=== PATIENT | male | born 1960 | race Caucasian/White ===

== ENCOUNTER 2016-08-26 02:11 | Emergency (ER) | payer OTHER ==
[2016-08-26 02:41] VITALS: BP 165/90
[2016-08-26 03:48] LABS: Urine Bacteria Absent (Absent); Urine Bilirubin Negative (Negative); Urine Glucose Negative (Negative); Urine Nitrite Negative (Negative)
[2016-08-26 03:50] LABS: Hematocrit 43 % (42-52); Hemoglobin 14.4 g/dl (14.0-18.0); Mean Corpuscular HGB Conc 33 g/dl (31-36); Mean Corpuscular Hemoglobin 30 pg (27-31); Mean Corpuscular Volume 88 fL (80-94); Mean Platelet Volume 9 um3 (7.4-10.4); Red Blood Count 4.87 10^6/ul (4.0-5.4); Red Cell Distribution Width 14 % (10.5-15); White Blood Count 6.8 10^3/ul (3.5-10.8)
[2016-08-26 03:56] LABS: ALT 16 U/L (7-52); AST 27 U/L (13-39); Albumin 4.2 g/dL (3.2-5.2); Alkaline Phosphatase 82 U/L (34-104); Anion Gap 7 mmol/L (2-11); BUN/Creatinine Ratio 16.8 (8-20); Blood Urea Nitrogen 17 mg/dL (6-24); CO2 Carbon Dioxide 26 mmol/L (22-32); Calcium 9.4 mg/dL (8.6-10.3); Chloride 102 mmol/L (101-111); EGFR African American 98.6 (>60); EGFR Non-African American 76.7 (>60); Globulin 2.8 g/dL (2-4); Glucose 153 mg/dL (70-100); Potassium 3.6 mmol/L (3.5-5.0); Sodium 135 mmol/L (133-145)
[2016-08-26 04:01] LABS: Acetaminophen < 15 mcg/mL; Alcohol < 10 mg/dL (<10); Salicylate < 2.50 mg/dL (<30)
[2016-08-26 04:11] LABS: TSH (Thyroid Stimulating Horm) 1.96 mcIU/mL (0.34-5.60)
[2016-08-26 04:14] LABS: Benzodiazepine Urine Screen None Detected (None Detect)
--- NOTE | 2016-08-26 06:30 | ED ---
Agustin Denny Aidan, scribed for Brennen Smith on 08/26/16 at 0317 . 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 He was suicidal and intended to take his life by overdosing on alcohol and sleep medication until he took a long walk and calmed down. Hx of depression. - History Of Current Complaint Chief Complaint: EDMentalHealth Time Seen by Provider: 08/26/16 02:48 Hx Obtained From: Patient Onset/Duration: Sudden Onset, Lasting Hours, Resolved Timing: Intermittent Episode Lasting Severity Initially: Moderate Severity Currently: Mild Character: Depressed Aggravating Factor(s): Other - chronic stress in life, Hx of depression Alleviating Factor(s): Other - taking a long walk alleviated his suicidal ideation Associated Signs And Symptoms: Positive: Negative Related History: Positive For: Prior Psychiatric Issues - depression Has Suicidal: Reports: Thoughts, With A Plan - however, he claims that he is no longer suicidal Has Homicidal: Denies: Thoughts, With A Plan, Demonstrates Gesture, Has Prior Attempt(s) - Risk Factor(s) Completed Suicide Risk Factors: Male, White [place] - Allergies/Home Medications Allergies/Adverse Reactions: Allergies Allergy/AdvReac Type Severity Reaction Status Date / Time No Known Allergies Allergy Verified 08/26/16 02:42 PMH/Surg Hx/FS Hx/Imm Hx Cardiovascular History: Reports: Hx Hypertension, Other Cardiovascular Problems/ Disorders - stents Psychiatric History: Reports: Hx Depression, Hx of Violent Episodes Against Others Denies: Hx Eating Disorder - Surgical History Surgery Procedure, Year, and Place: STENT PLACEMENT. COSMETIC SX EYES. HERNIA REPAIR X 3 Infectious Disease History: No Infectious Disease History: Reports: Hx of Known/Suspected MRSA - Pt denies on Denies: Traveled Outside the [place] in Last 30 Days - Family History Known Family History: Positive: Hypertension, Diabetes, Other - "psych problems " - Social History Occupation: Disabled Lives: With Family Alcohol Use: Rare Alcohol Amount: Pt states he started drinking alcohol 1 week ago, 2-3 drinks/day Hx Substance Use: No Substance Use Type: Reports: None Hx Tobacco Use: Yes Smoking Status (MU): Former Smoker Review of Systems Constitutional: Negative Eyes: Negative ENT: Negative Cardiovascular: Negative Respiratory: Negative Gastrointestinal: Negative Genitourinary: Negative Musculoskeletal: Negative Skin: Negative Neurological: Negative Positive: Depressed All Other Systems Reviewed And Are Negative: Yes Physical Exam Triage Information Reviewed: Yes Vital Signs On Initial Exam: Initial Vitals Temp Pulse Resp BP Pulse Ox 97.9 F 71 18 165/90 99 08/26/16 02:37 08/26/16 02:37 08/26/16 02:37 08/26/16 02:37 08/26/16 02:37 Vital Signs Reviewed: Yes Appearance: Positive: Well-Appearing, No Pain Distress Skin: Positive: Warm, Skin Color Reflects Adequate Perfusion, Dry Head/Face: Positive: Normal Head/Face Inspection Eyes: Positive: EOMI, LAYLA ENT: Positive: Normal ENT inspection Neck: Positive: Supple, Nontender Respiratory/Lung Sounds: Positive: Clear to Auscultation, Breath Sounds Present Cardiovascular: Positive: RRR, Pulses are Symmetrical in both Upper and Lower Extremities Abdomen Description: Positive: Nontender, No Organomegaly Bowel Sounds: Positive: Present Musculoskeletal: Positive: Strength/ROM Intact Neurological: Positive: Sensory/Motor Intact, Alert, Oriented to Person Place, Time Psychiatric: Positive: Depressed AVPU Assessment: Alert - Javier Coma Scale Coma Scale Total: 15 Diagnostics - Vital Signs Vital Signs Temp Pulse Resp BP Pulse Ox 08/26/16 02:37 97.9 F 71 18 165/90 99 - Laboratory Lab Results: Lab Results 08/26/16 08/26/16 08/26/16 Range/Units 02:42 02:42 02:42 WBC 6.8 (3.5-10.8) 10^3/ul RBC 4.87 (4.0-5.4) 10^6/ul Hgb 14.4 (14.0-18.0) g/dl Hct 43 (42-52) % MCV 88 (80-94) fL MCH 30 (27-31) pg MCHC 33 (31-36) g/dl RDW 14 (10.5-15) % Plt Count 163 (150-450) 10^3/ul MPV 9 (7.4-10.4) um3 Neut % (Auto) 70.4 (38-83) % Lymph % (Auto) 18.1 L (25-47) % [place] % (Auto) 7.7 (1-9) % Eos % (Auto) 2.8 (0-6) % Baso % (Auto) 1.0 (0-2) % Absolute Neuts (auto) 4.8 (1.5-7.7) 10^3/ul Absolute Lymphs (auto) 1.2 (1.0-4.8) 10^3/ul Absolute Monos (auto) 0.5 (0-0.8) 10^3/ul Absolute Eos (auto) 0.2 (0-0.6) 10^3/ul Absolute Basos (auto) 0.1 (0-0.2) 10^3/ul Absolute Nucleated RBC 0.01 10^3/ul Nucleated RBC % 0.1 Sodium 135 (133-145) mmol/L Potassium 3.6 (3.5-5.0) mmol/L Chloride 102 (101-111) mmol/L Carbon Dioxide 26 (22-32) mmol/L Anion Gap 7 (2-11) mmol/L BUN 17 (6-24) mg/dL Creatinine 1.01 (0.67-1.17) mg/dL Est GFR ( Amer) 98.6 (>60) Est GFR (Non-Af Amer) 76.7 (>60) BUN/Creatinine Ratio 16.8 (8-20) Glucose 153 H (70-100) mg/dL Calcium 9.4 (8.6-10.3) mg/dL Total Bilirubin 0.50 (0.2-1.0) mg/dL AST 27 (13-39) U/L ALT 16 (7-52) U/L Alkaline Phosphatase 82 (34-104) U/L Total Protein 7.0 (6.4-8.9) g/dL Albumin 4.2 (3.2-5.2) g/dL Globulin 2.8 (2-4) g/dL Albumin/Globulin Ratio 1.5 (1-3) TSH 1.96 (0.34-5.60) mcIU/mL Urine Color Yellow Urine Appearance Clear Urine pH 6.0 (5-9) Ur Specific [place] 1.015 (1.010-1.030) Urine Protein Negative (Negative) Urine Ketones Negative (Negative) Urine Blood Negative (Negative) Urine Nitrate Negative (Negative) Urine Bilirubin Negative (Negative) Urine Urobilinogen Negative (Negative) Ur Leukocyte Esterase Trace H (Negative) Urine WBC (Auto) 1+(6-10/hpf) H (Absent) Urine RBC (Auto) Trace(0-2/hpf) (Absent) Urine Bacteria Absent (Absent) Urine Glucose Negative (Negative) Salicylates < 2.50 (<30) mg/dL Urine Opiates Screen (None Detect) Acetaminophen < 15 mcg/mL Ur Barbiturates Screen (None Detect) Ur Phencyclidine Scrn (None Detect) Ur Amphetamines Screen (None Detect) U Benzodiazepines Scrn (None Detect) Urine Cocaine Screen (None Detect) U Cannabinoids Screen (None Detect) Serum Alcohol < 10 (<10) mg/dL 08/26/16 Range/Units 02:42 WBC (3.5-10.8) 10^3/ul RBC (4.0-5.4) 10^6/ul Hgb (14.0-18.0) g/dl Hct (42-52) % MCV (80-94) fL MCH (27-31) pg MCHC (31-36) g/dl RDW (10.5-15) % Plt Count (150-450) 10^3/ul MPV (7.4-10.4) um3 Neut % (Auto) (38-83) % Lymph % (Auto) (25-47) % [place] % (Auto) (1-9) % Eos % (Auto) (0-6) % Baso % (Auto) (0-2) % Absolute Neuts (auto) (1.5-7.7) 10^3/ul Absolute Lymphs (auto) (1.0-4.8) 10^3/ul Absolute Monos (auto) (0-0.8) 10^3/ul Absolute Eos (auto) (0-0.6) 10^3/ul Absolute Basos (auto) (0-0.2) 10^3/ul Absolute Nucleated RBC 10^3/ul Nucleated RBC % Sodium (133-145) mmol/L Potassium (3.5-5.0) mmol/L Chloride (101-111) mmol/L Carbon Dioxide (22-32) mmol/L Anion Gap (2-11) mmol/L BUN (6-24) mg/dL Creatinine (0.67-1.17) mg/dL Est GFR ( Amer) (>60) Est GFR (Non-Af Amer) (>60) BUN/Creatinine Ratio (8-20) Glucose (70-100) mg/dL Calcium (8.6-10.3) mg/dL Total Bilirubin (0.2-1.0) mg/dL AST (13-39) U/L ALT (7-52) U/L Alkaline Phosphatase (34-104) U/L Total Protein (6.4-8.9) g/dL Albumin (3.2-5.2) g/dL Globulin (2-4) g/dL Albumin/Globulin Ratio (1-3) TSH (0.34-5.60) mcIU/mL Urine Color Urine Appearance Urine pH (5-9) Ur Specific [place] (1.010-1.030) Urine Protein (Negative) Urine Ketones (Negative) Urine Blood (Negative) Urine Nitrate (Negative) Urine Bilirubin (Negative) Urine Urobilinogen (Negative) Ur Leukocyte Esterase (Negative) Urine WBC (Auto) (Absent) Urine RBC (Auto) (Absent) Urine Bacteria (Absent) Urine Glucose (Negative) Salicylates (<30) mg/dL Urine Opiates Screen None detected (None Detect) Acetaminophen mcg/mL Ur Barbiturates Screen None detected (None Detect) Ur Phencyclidine Scrn None detected (None Detect) Ur Amphetamines Screen None detected (None Detect) U Benzodiazepines Scrn None detected (None Detect) Urine Cocaine Screen None detected (None Detect) U Cannabinoids Screen None detected (None Detect) Serum Alcohol (<10) mg/dL Result Diagrams: 08/26/16 02:42 08/26/16 02:42 Lab Statement: Any lab studies that have been ordered have been reviewed, and results considered in the medical decision making process. Course/Dx - Course Course Of Treatment: This is a 56 y/o male who presents with depression. He had suicidal ideation until he took a long walk and calmed himself down. Pt requests consultation with psych. He will be admitted under supervision of Dr. Dominguez and will consult with psych. - Differential Dx/Clinical Impression Differential Diagnosis/HQI/PQRI: Positive: Depression, Suicidal Ideation Provider Diagnosis: Depression, Suicidal ideation Discharge - Discharge Plan Condition: Stable Disposition: ADMITTED TO [facility] Referrals: Julisa VAZQUEZ,Clyde Carroll [Primary Care Provider] - The documentation as recorded by the Agustin aguilar Aidan accurately reflects the service I personally performed and the decisions made by me, Brennen Smith.
--- NOTE | 2016-08-26 14:59 | ED ---
Nikita Denny Matthew, scribed for James Dominguez MD on 08/26/16 at 1457 . Progress - Progress Note Progress Note: The patient is a sign out from Dr. Smith. The patient is currently waiting for family to arrive in the ED to determine if theres a safe discharge plan. Condition stable and disposition pending. - Consult/PCP Time Called: 06:15 Course/Dx - Course Course Of Treatment: This is a 56 y/o male who presents with depression. He had suicidal ideation until he took a long walk and calmed himself down. Pt requests consultation with psych. He will be admitted under supervision of Dr. Dominguez and will consult with psych. - Diagnoses Provider Diagnoses: Depression, Suicidal ideation The documentation as recorded by the Nikita aguilar Matthew accurately reflects the service I personally performed and the decisions made by , James Dominguez MD.
== END 2016-08-26 16:45 | disposition home or self-care (01) ==
LOC: ED 02:11
DX: R45.851 Suicidal ideations (principal); F32.9 Major depressive disorder, single episode, unspecified; Z87.891 Personal history of nicotine dependence
CPT/HCPCS: 36415; 80053; 80307; 80320; 80329; 81003; 81015; 84443; 85025; 87086; 93005; 99284; G0480

== ENCOUNTER 2017-01-16 15:19 | Emergency (ER) | payer OTHER ==
[2017-01-16 15:26] VITALS: BP 166/98
--- NOTE | 2017-01-16 15:49 | UC ---
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 - History of Current Complaint Chief Complaint: UCUpperExtremity Stated Complaint: LFT ELBOW PAIN Time Seen by Provider: 01/16/17 15:34 Hx Obtained From: Patient Onset/Duration: Weeks Severity Initially: Mild Severity Currently: Moderate Pain Intensity: 6 Pain Scale Used: 0-10 Numeric Character: Aching, Throbbing, Spasmodic Aggravating Factor(s): Movement, Pulling, Twisting Alleviating Factor(s): Rest Associated Signs And Symptoms: Positive: Negative - Allergies/Home Medications Allergies/Adverse Reactions: Allergies Allergy/AdvReac Type Severity Reaction Status Date / Time No Known Allergies Allergy Verified 01/16/17 15:26 PMH/Surg Hx/FS Hx/Imm Hx Previously Healthy: Yes Endocrine History: Hyperthyroidism, Dyslipidemia Cardiovascular History: Cardiac Disease, Hypertension Psychological History: Depression - Surgical History Surgical History: Yes Surgery Procedure, Year, and Place: STENT PLACEMENT. COSMETIC SX EYES. HERNIA REPAIR X 3 - Family History Known Family History: Positive: Cardiac Disease, Hypertension, Diabetes, Other - "psych problems" - Social History Alcohol Use: None Alcohol Amount: Pt states he started drinking alcohol 1 week ago, 2-3 drinks/day Substance Use Type: None Smoking Status (MU): Former Smoker When Did the Patient Quit Smoking/Using Tobacco: 2000 Household Exposure Type: Cigarettes - Immunization History Most Recent Tetanus Shot: about 3 years ago Review of Systems Constitutional: Negative Skin: Negative Eyes: Negative ENT: Negative Respiratory: Negative Cardiovascular: Negative Gastrointestinal: Negative Genitourinary: Negative Motor: Negative Neurovascular: Negative Musculoskeletal: Arthralgia Neurological: Negative Psychological: Negative All Other Systems Reviewed And Are Negative: Yes Physical Exam Triage Information Reviewed: Yes Appearance: Well-Appearing, No Pain Distress, Well-Nourished Vital Signs: Initial Vital Signs Temp 98.6 F 01/16/17 15:20 Pulse 69 01/16/17 15:20 Resp 16 01/16/17 15:20 BP 166/98 01/16/17 15:20 Pulse Ox 96 01/16/17 15:20 Vital Signs Reviewed: Yes Eyes: Positive: Conjunctiva Clear ENT: Positive: Hearing grossly normal. Negative: Nasal congestion, Nasal drainage, Trismus, Muffled/hoarse voice Neck: Positive: Supple, Nontender Respiratory: Positive: Lungs clear, Normal breath sounds, No respiratory distress, No accessory muscle use Cardiovascular: Positive: RRR, No Murmur Musculoskeletal: Positive: ROM Intact, No Edema, Other: - tender lateral epicondyle Neurological: Positive: Alert Psychological Exam: Normal Skin Exam: Normal Elbow Pain Course/Dx - Differential Dx/Diagnosis Provider Diagnoses: right lateral epicondylitis Discharge - Discharge Plan Condition: Stable Disposition: HOME Prescriptions: Naproxen Sodium [Naproxen Sodium 500 MG TAB] 500 mg PO BID PRN #30 tab PRN Reason: Pain Patient Education Materials: Tennis Elbow (ED) Referrals: Zaki Le MD [Medical Doctor] - As Soon As Possible Julisa VAZQUEZ,Clyde Carroll [Primary Care Provider] - 1 Week (for bp recheck) Additional Instructions: you can try a tennis elbow strap or brace
--- NOTE | 2017-01-16 15:55 | RAD ---
INDICATION: Right elbow pain. TECHNIQUE: 4 views of the right elbow were obtained. FINDINGS: The bones are in normal alignment. No joint effusion or fracture is seen. There is mild osteoarthritic change present. IMPRESSION: MILD OSTEOARTHRITIC CHANGE.
== END 2017-01-16 16:01 | disposition home or self-care (01) ==
LOC: UCCORT 15:19
DX: M77.11 Lateral epicondylitis, right elbow (principal); E05.90 Thyrotoxicosis, unspecified without thyrotoxic crisis or storm; E78.5 Hyperlipidemia, unspecified; I10 Essential (primary) hypertension; F32.9 Major depressive disorder, single episode, unspecified; Z95.5 Presence of coronary angioplasty implant and graft; Z87.891 Personal history of nicotine dependence
CPT/HCPCS: 99212; G0463

== ENCOUNTER 2017-02-18 12:06 | Emergency (ER) | payer OTHER ==
[2017-02-18 12:44] LABS: Hematocrit 45 % (42-52); Hemoglobin 14.7 g/dl (14.0-18.0); Mean Corpuscular HGB Conc 33 g/dl (31-36); Mean Corpuscular Hemoglobin 30 pg (27-31); Mean Corpuscular Volume 91 fL (80-94); Mean Platelet Volume 9 um3 (7.4-10.4); Red Blood Count 4.89 10^6/ul (4.0-5.4); Red Cell Distribution Width 14 % (10.5-15); White Blood Count 7.3 10^3/ul (3.5-10.8)
[2017-02-18 12:46] VITALS: BP 172/100
[2017-02-18 12:59] LABS: Urine Bacteria Absent (Absent); Urine Bilirubin Negative (Negative); Urine Glucose Negative (Negative); Urine Nitrite Negative (Negative)
[2017-02-18 13:17] LABS: ALT 14 U/L (7-52); AST 25 U/L (13-39); Albumin 4.4 g/dL (3.2-5.2); Alkaline Phosphatase 91 U/L (34-104); Anion Gap 4 mmol/L (2-11); BUN/Creatinine Ratio 14.2 (8-20); Blood Urea Nitrogen 15 mg/dL (6-24); CO2 Carbon Dioxide 25 mmol/L (22-32); Calcium 9.6 mg/dL (8.6-10.3); Chloride 107 mmol/L (101-111); EGFR African American 93.3 (>60); EGFR Non-African American 72.5 (>60); Globulin 2.8 g/dL (2-4); Glucose 81 mg/dL (70-100); Sodium 136 mmol/L (133-145); Total Protein 7.2 g/dL (6.4-8.9)
[2017-02-18 13:19] LABS: Benzodiazepine Urine Screen None Detected (None Detect)
[2017-02-18 13:19] LABS: Acetaminophen < 15 mcg/mL; Alcohol < 10 mg/dL (<10); Salicylate < 2.50 mg/dL (<30)
[2017-02-18 13:27] LABS: TSH (Thyroid Stimulating Horm) 1.54 mcIU/mL (0.34-5.60)
--- NOTE | 2017-02-18 19:19 | ED ---
Bridgett Denny Seung-Jae, scribed for aJmes Dominguez MD on 02/18/17 at 1617 . Psychiatric Complaint - HPI Summary HPI Summary: Pt is a 56 y/o M presenting to the ED with c/o acute on chronic depression and SI with the plan involving drowing, cutting himself, jumping in to car, and hanging. His SI onset was 3-4 hours ago and his depression has been continuous for 3 days. No cuts were found on his limbs. He states that he has been hearing voices saying that "he is no good". Pt denies paranoia, CP, SOB, abd pain. He has been admitted to [facility] for depression. He denies drug abuse, drinking, and smoking. - History Of Current Complaint Chief Complaint: EDMentalHealth Time Seen by Provider: 02/18/17 12:27 Hx Obtained From: Patient - Allergies/Home Medications Allergies/Adverse Reactions: Allergies Allergy/AdvReac Type Severity Reaction Status Date / Time No Known Allergies Allergy Verified 01/16/17 15:26 Home Medications: Home Medications Citalopram TAB* [CeleXA TAB*] 40 mg PO DAILY 02/18/17 [History Confirmed ] Prazosin CAP* [Minipress CAP*] 5 mg PO DAILY 02/18/17 [History Confirmed ] traZODone TAB* [Desyrel TAB*] 150 mg PO BEDTIME 02/18/17 [History Confirmed ] PMH/Surg Hx/FS Hx/Imm Hx Cardiovascular History: Reports: Hx Hypertension, Other Cardiovascular Problems/ Disorders - stents Psychiatric History: Reports: Hx Depression, Hx of Violent Episodes Against Others Denies: Hx Eating Disorder - Surgical History Surgery Procedure, Year, and Place: STENT PLACEMENT. COSMETIC SX EYES. HERNIA REPAIR X 3 Infectious Disease History: Reports: Hx of Known/Suspected MRSA Denies: Traveled Outside the [place] in Last 30 Days - Family History Known Family History: Positive: Cardiac Disease, Hypertension, Diabetes, Other - "psych problems" - Social History Alcohol Use: None Alcohol Amount: Pt states he started drinking alcohol 1 week ago, 2-3 drinks/day Hx Substance Use: No Substance Use Type: Reports: None Hx Tobacco Use: Yes Smoking Status (MU): Former Smoker Review of Systems Negative: Fever Positive: Depressed - SI with plan involving drowing, self cutting, hanging, and jumping in front of vehicle. All Other Systems Reviewed And Are Negative: Yes Physical Exam - Summary Physical Exam Summary: The patient is well-nourished in no acute distress and in no acute pain. The skin is warm and dry and skin color reflects adequate perfusion. HEENT: The head is normocephalic and atraumatic. The pupils are equal and reactive. The conjunctivae are clear and without drainage. Nares are patent and without drainage. Mouth reveals moist mucous membranes and the throat is without erythema and exudate. The external ears are intact. The ear canals are patent and without drainage. The tympanic membranes are intact. Neck is supple with full range of motion and non-tender. There are no carotid bruits. There is no neck vein distension. Respiratory: Chest is non-tender. Lungs are clear to auscultation and breath sounds are symmetrical and equal. Cardiovascular: Hear is regular rate and rhythm. There is no murmur or rub auscultated. There is no peripheral edema and pulses are symmetrical and equal. Abdomen: The abdomen is soft and non-tender. There are normal bowel sounds heard in all four quadrants and there is no organomegaly palpated. Musculoskeletal: There is no back pain noted. Extremities are non-tender with full range of motion. There is good capillary refill. There is no peripheral edema or calf tenderness elicited. Neurological: Patient is alert and oriented to person, place and time. The patient has symmetrical motor strength in all four extremities. Cranial nerves are grossly intact. Deep tendon reflexes are symmetrical and equal in all four extremities. Psychiatric: The patient has an appropriate affect and does not exhibit any anxiety or depression. Triage Information Reviewed: Yes Vital Signs On Initial Exam: Initial Vitals Temp Pulse Resp BP Pulse Ox 98.5 F 100 17 167/73 97 02/18/17 12:09 02/18/17 12:09 02/18/17 12:09 02/18/17 12:09 02/18/17 12:09 Vital Signs Reviewed: Yes Diagnostics - Vital Signs Vital Signs Temp Pulse Resp BP Pulse Ox 02/18/17 12:09 98.5 F 100 17 167/73 97 - Laboratory Lab Results: Lab Results 02/18/17 02/18/17 02/18/17 Range/Units 12:16 12:16 12:22 WBC 7.3 (3.5-10.8) 10^3/ul RBC 4.89 (4.0-5.4) 10^6/ul Hgb 14.7 (14.0-18.0) g/dl Hct 45 (42-52) % MCV 91 (80-94) fL MCH 30 (27-31) pg MCHC 33 (31-36) g/dl RDW 14 (10.5-15) % Plt Count 185 (150-450) 10^3/ul MPV 9 (7.4-10.4) um3 Neut % (Auto) 65.0 (38-83) % Lymph % (Auto) 23.7 L (25-47) % [place] % (Auto) 5.8 (1-9) % Eos % (Auto) 4.4 (0-6) % Baso % (Auto) 1.1 (0-2) % Absolute Neuts (auto) 4.7 (1.5-7.7) 10^3/ul Absolute Lymphs (auto) 1.7 (1.0-4.8) 10^3/ul Absolute Monos (auto) 0.4 (0-0.8) 10^3/ul Absolute Eos (auto) 0.3 (0-0.6) 10^3/ul Absolute Basos (auto) 0.1 (0-0.2) 10^3/ul Absolute Nucleated RBC 0.01 10^3/ul Nucleated RBC % 0.1 Sodium 136 (133-145) mmol/L Potassium 4.0 (3.5-5.0) mmol/L Chloride 107 (101-111) mmol/L Carbon Dioxide 25 (22-32) mmol/L Anion Gap 4 (2-11) mmol/L BUN 15 (6-24) mg/dL Creatinine 1.06 (0.67-1.17) mg/dL Est GFR ( Amer) 93.3 (>60) Est GFR (Non-Af Amer) 72.5 (>60) BUN/Creatinine Ratio 14.2 (8-20) Glucose 81 (70-100) mg/dL Calcium 9.6 (8.6-10.3) mg/dL Total Bilirubin 0.50 (0.2-1.0) mg/dL AST 25 (13-39) U/L ALT 14 (7-52) U/L Alkaline Phosphatase 91 (34-104) U/L Total Protein 7.2 (6.4-8.9) g/dL Albumin 4.4 (3.2-5.2) g/dL Globulin 2.8 (2-4) g/dL Albumin/Globulin Ratio 1.6 (1-3) TSH 1.54 (0.34-5.60) mcIU/mL Urine Color Yellow Urine Appearance Cloudy Urine pH 5.0 (5-9) Ur Specific [place] 1.026 (1.010-1.030) Urine Protein Negative (Negative) Urine Ketones Negative (Negative) Urine Blood Negative (Negative) Urine Nitrate Negative (Negative) Urine Bilirubin Negative (Negative) Urine Urobilinogen Negative (Negative) Ur Leukocyte Esterase Trace H (Negative) Urine WBC (Auto) Trace(0-5/hpf) (Absent) Urine RBC (Auto) Trace(0-2/hpf) (Absent) Calcium Oxalate Crystal Present H (Absent) Urine Bacteria Absent (Absent) Urine Glucose Negative (Negative) Salicylates < 2.50 (<30) mg/dL Urine Opiates Screen (None Detect) Acetaminophen < 15 mcg/mL Ur Barbiturates Screen (None Detect) Ur Phencyclidine Scrn (None Detect) Ur Amphetamines Screen (None Detect) U Benzodiazepines Scrn (None Detect) Urine Cocaine Screen (None Detect) U Cannabinoids Screen (None Detect) Serum Alcohol < 10 (<10) mg/dL 02/18/17 Range/Units 12:22 WBC (3.5-10.8) 10^3/ul RBC (4.0-5.4) 10^6/ul Hgb (14.0-18.0) g/dl Hct (42-52) % MCV (80-94) fL MCH (27-31) pg MCHC (31-36) g/dl RDW (10.5-15) % Plt Count (150-450) 10^3/ul MPV (7.4-10.4) um3 Neut % (Auto) (38-83) % Lymph % (Auto) (25-47) % [place] % (Auto) (1-9) % Eos % (Auto) (0-6) % Baso % (Auto) (0-2) % Absolute Neuts (auto) (1.5-7.7) 10^3/ul Absolute Lymphs (auto) (1.0-4.8) 10^3/ul Absolute Monos (auto) (0-0.8) 10^3/ul Absolute Eos (auto) (0-0.6) 10^3/ul Absolute Basos (auto) (0-0.2) 10^3/ul Absolute Nucleated RBC 10^3/ul Nucleated RBC % Sodium (133-145) mmol/L Potassium (3.5-5.0) mmol/L Chloride (101-111) mmol/L Carbon Dioxide (22-32) mmol/L Anion Gap (2-11) mmol/L BUN (6-24) mg/dL Creatinine (0.67-1.17) mg/dL Est GFR ( Amer) (>60) Est GFR (Non-Af Amer) (>60) BUN/Creatinine Ratio (8-20) Glucose (70-100) mg/dL Calcium (8.6-10.3) mg/dL Total Bilirubin (0.2-1.0) mg/dL AST (13-39) U/L ALT (7-52) U/L Alkaline Phosphatase (34-104) U/L Total Protein (6.4-8.9) g/dL Albumin (3.2-5.2) g/dL Globulin (2-4) g/dL Albumin/Globulin Ratio (1-3) TSH (0.34-5.60) mcIU/mL Urine Color Urine Appearance Urine pH (5-9) Ur Specific [place] (1.010-1.030) Urine Protein (Negative) Urine Ketones (Negative) Urine Blood (Negative) Urine Nitrate (Negative) Urine Bilirubin (Negative) Urine Urobilinogen (Negative) Ur Leukocyte Esterase (Negative) Urine WBC (Auto) (Absent) Urine RBC (Auto) (Absent) Calcium Oxalate Crystal (Absent) Urine Bacteria (Absent) Urine Glucose (Negative) Salicylates (<30) mg/dL Urine Opiates Screen None detected (None Detect) Acetaminophen mcg/mL Ur Barbiturates Screen None detected (None Detect) Ur Phencyclidine Scrn None detected (None Detect) Ur Amphetamines Screen None detected (None Detect) U Benzodiazepines Scrn None detected (None Detect) Urine Cocaine Screen None detected (None Detect) U Cannabinoids Screen None detected (None Detect) Serum Alcohol (<10) mg/dL Result Diagrams: 02/18/17 12:16 02/18/17 12:16 Lab Statement: Any lab studies that have been ordered have been reviewed, and results considered in the medical decision making process. Course/Dx - Course Assessment/Plan: This 56 y/o male presents to ED for acute on chronic depression and SI involving extensive plans. After MHE, pt is discharged with dx of depression and noncompliance. - Differential Dx/Clinical Impression Differential Diagnosis/HQI/PQRI: Positive: Depression, Suicidal Ideation Provider Diagnosis: Depression, Noncompliance - Physician Notifications Patient Is Medically Stable For: Psych Evaluation - at 1334 PM Discharge - Discharge Plan Condition: Stable Disposition: HOME Referrals: Clyde Weiss [Primary Care Provider] - The documentation as recorded by the Bridgett aguilar Seung-Jae accurately reflects the service I personally performed and the decisions made by , James Dominguez MD.
== END 2017-02-18 16:53 | disposition home or self-care (01) ==
LOC: ED 12:06
DX: F32.9 Major depressive disorder, single episode, unspecified (principal); Z87.891 Personal history of nicotine dependence
CPT/HCPCS: 36415; 80053; 80307; 80320; 80329; 81003; 81015; 84443; 85025; 87086; 99283; G0480

== ENCOUNTER 2017-02-24 17:47 | Emergency (ER) | payer OTHER ==
--- NOTE | 2017-02-24 18:46 | RAD ---
INDICATION: Left ankle injury. TECHNIQUE: 3 views of the left ankle were obtained. FINDINGS: There is mild diffuse soft tissue swelling. The bones are in normal alignment. No fracture is seen. IMPRESSION: SOFT TISSUE SWELLING, NO FRACTURE IS SEEN.
[2017-02-24] MEDS ORDERED: Ibuprofen TAB* 600 MG PO ONE (19:17)
--- NOTE | 2017-02-24 19:17 | ED ---
Lower Extremity - HPI Summary HPI Summary: 56M presents with left ankle pain for a day. He states that he twisted his ankle today on the side walk. He states pain is greatest on the lateral aspect of his ankle. He denies any numbness or tingling. He is still able to ambulate on the area. He has not taken anything for pain. He has had a previous fracture to the area. - History of Current Complaint Chief Complaint: EDExtremityLower Stated Complaint: LT ANKLE PAIN Time Seen by Provider: 02/24/17 18:21 Pain Intensity: 9 - Allergies/Home Medications Allergies/Adverse Reactions: Allergies Allergy/AdvReac Type Severity Reaction Status Date / Time No Known Allergies Allergy Verified 01/16/17 15:26 PMH/Surg Hx/FS Hx/Imm Hx Endocrine/Hematology History: Denies: Hx Anticoagulant Therapy Cardiovascular History: Reports: Hx Hypertension, Other Cardiovascular Problems/ Disorders - stents Psychiatric History: Reports: Hx Depression, Hx of Violent Episodes Against Others Denies: Hx Eating Disorder - Surgical History Surgery Procedure, Year, and Place: STENT PLACEMENT. COSMETIC SX EYES. HERNIA REPAIR X 3 Infectious Disease History: No Infectious Disease History: Reports: Hx of Known/Suspected MRSA Denies: Traveled Outside the [place] in Last 30 Days - Family History Known Family History: Positive: Cardiac Disease, Hypertension, Diabetes, Other - "psych problems" - Social History Alcohol Use: Weekly Alcohol Amount: Pt states he started drinking alcohol 1 week ago, 2-3 drinks/day Hx Substance Use: No Substance Use Type: Reports: None Hx Tobacco Use: Yes Smoking Status (MU): Former Smoker Review of Systems Negative: Fever Negative: Chest Pain Negative: Shortness Of Breath Positive: Myalgia - left ankle pain All Other Systems Reviewed And Are Negative: Yes Physical Exam Triage Information Reviewed: Yes Vital Signs On Initial Exam: Initial Vitals Temp Pulse Resp BP Pulse Ox 98.1 F 69 16 146/82 95 02/24/17 17:59 02/24/17 17:59 02/24/17 17:59 02/24/17 17:59 02/24/17 17:59 Vital Signs Reviewed: Yes Appearance: Positive: Well-Appearing Skin: Positive: Warm, Dry Head/Face: Positive: Normal Head/Face Inspection Eyes: Positive: Normal, Conjunctiva Clear Respiratory/Lung Sounds: Positive: Clear to Auscultation, Breath Sounds Present Cardiovascular: Positive: Normal, RRR Musculoskeletal: Positive: Limited @ - left ankle, Other - good pulses, capillary refill< 2 secs, tender over lateral aspect of ankle, mild edema present left ankle Diagnostics - Vital Signs Vital Signs Temp Pulse Resp BP Pulse Ox 02/24/17 17:59 98.1 F 69 16 146/82 95 - Laboratory Lab Statement: Any lab studies that have been ordered have been reviewed, and results considered in the medical decision making process. - Radiology ankle Xray Interpretation: No Acute Changes Radiology Interpretation Completed By: Radiologist Lower Extremity Course/Dx - Course Course Of Treatment: 56M presents with left ankle pain for a day. He states that he twisted his ankle today on the side walk. He states pain is greatest on the lateral aspect of his ankle. He denies any numbness or tingling. He is still able to ambulate on the area. He has not taken anything for pain. He has had a previous fracture to the area. on exam mild swelling noted of left ankle. neurovascular intact. xray normal. wrapped area in DARRYL. patient understands and agrees with plan. - Diagnoses Differential Diagnosis/HQI/PQRI: Positive: Fracture (Closed), Sprain, Strain Provider Diagnoses: Left ankle pain Discharge - Discharge Plan Condition: Good Disposition: HOME Patient Education Materials: Ankle Sprain (ED) Referrals: Julisa VAZQUEZ,Clyde Carroll [Primary Care Provider] - Additional Instructions: Take Tylenol every 6 hours as needed for pain Apply ice, rest, elevate Follow up with primary care physician within 5 days Return to ED if develop any new or worsening symptoms
[2017-02-24 19:29] VITALS: BP 179/100
== END 2017-02-24 19:28 | disposition home or self-care (01) ==
LOC: ED 17:47
DX: M25.572 Pain in left ankle and joints of left foot (principal)
CPT/HCPCS: 99282; A9270-GY

== ENCOUNTER 2017-05-06 11:31 | Observation (INO) | payer OTHER ==
[2017-05-06] MEDS ORDERED: Aspirin Low Dose CHEW TAB* 81 MG PO ONE (12:21)
[2017-05-06 12:56] LABS: Hematocrit 41 % (42-52); Mean Corpuscular HGB Conc 34 g/dl (31-36); Mean Corpuscular Hemoglobin 30 pg (27-31); Mean Corpuscular Volume 89 fL (80-94); Mean Platelet Volume 8 um3 (7.4-10.4); Red Blood Count 4.64 10^6/ul (4.0-5.4); Red Cell Distribution Width 14 % (10.5-15); White Blood Count 7.3 10^3/ul (3.5-10.8)
--- NOTE | 2017-05-06 13:01 | RAD ---
HISTORY: Chest pain COMPARISONS: None VIEWS: 1: frontal portable view of the chest at 12:30 PM FINDINGS: LINES AND TUBES: None. CARDIOMEDIASTINAL SILHOUETTE: The cardiomediastinal silhouette is normal for portable technique. PLEURA: The costophrenic angles are sharp. No pleural abnormalities are noted. LUNG PARENCHYMA: The lungs are clear. ABDOMEN: The upper abdomen is clear. There is no subphrenic gas. BONES AND SOFT TISSUES: No bone or soft tissue abnormalities are noted. IMPRESSION: NO ACTIVE CARDIOPULMONARY DISEASE.
[2017-05-06 13:12] LABS: BUN/Creatinine Ratio 21.4 (8-20); Calcium 9.2 mg/dL (8.6-10.3); EGFR African American 101.8 (>60); EGFR Non-African American 79.1 (>60); Globulin 2.8 g/dL (2-4); Potassium 3.9 mmol/L (3.5-5.0); Total Bilirubin 0.4 mg/dL (0.2-1.0); Total Protein 6.8 g/dL (6.4-8.9)
[2017-05-06 13:14] LABS: Troponin I 0.01 ng/mL (<0.04)
[2017-05-06] MEDS ORDERED: Ondansetron INJ* 2 MG/ML VIAL IV PRN (13:48)
[2017-05-06] MEDS ORDERED: Acetaminophen TAB* 325 MG PO PRN (13:48)
[2017-05-06] MEDS: Metoprolol Tartrate TAB* 25 MG PO SCH ×2 (14:21→21:22)
[2017-05-06] MEDS: Nitroglycerin 2% OINT* 1 GM PAK TOPICAL SCH (14:21)
--- NOTE | 2017-05-06 15:54 | ECHO ---
Patient: DALILA MONAE [facility] Rec#: [id number] : 1960 Date: 05/06/2017 Age: 57y Height: 170.18 cm / 67.0 in Weight: 104.33 kg / 229.9 lbs Sex: M BSA: 2.15 Room#: -19 Admit Date#: 05/06/2017 Type: Inpatient Referring: Chet Pan NP Reading: Trevor Oden MD Operating Room Aide: Josefina aGrcía RDCS CC: JAQUELIN Mathew Transthoracic Echocardiogram Indication: CP//CAD BP: 184/142 HR: 64 Rhythm: NSR Findings History: CAD with PCI in the past,HTN,former smoker,depression ,mental health issues. Technical Comments: The study quality is good. Completed at 1536. Left Ventricle: Severe concentric left ventricular hypertrophy is observed. Global left ventricular wall motion and contractility are within normal limits. There is normal left ventricular systolic function. The estimated ejection fraction is 55-60%. Abnormal left ventricular diastolic function is observed. Left Atrium: The left atrium is mildly dilated. Right Ventricle: The right ventricular cavity size is normal. The right ventricular global systolic function is normal. Right Atrium: The right atrium is moderately dilated. Aortic Valve: The aortic valve is trileaflet. There is no evidence of aortic valve thickening. There is mild aortic regurgitation. There is no evidence of aortic stenosis. Mitral Valve: The mitral valve leaflets are mildly thickened. There is mild mitral regurgitation. There is no evidence of mitral stenosis. Tricuspid Valve: The tricuspid valve leaflets are normal. There is mild tricuspid regurgitation. There is evidence of mild pulmonary hypertension. There is no tricuspid stenosis. Pulmonic Valve: The pulmonic valve appears normal. There is no evidence of pulmonic regurgitation. There is no pulmonic stenosis. Pericardium: The pericardium appears normal. Aorta: There is no dilatation of the ascending aorta. There is no dilatation of the aortic arch. There is no dilation of the aortic root. Pulmonary Artery: The main pulmonary artery appears normal. Venous: The venous system is not well visualized. Conclusions Global left ventricular wall motion and contractility are within normal limits. There is normal left ventricular systolic function. The estimated ejection fraction is 55-60%. There is mild aortic regurgitation. There is no evidence of aortic stenosis. There is mild mitral regurgitation. There is mild tricuspid regurgitation. There is evidence of mild pulmonary hypertension. The pericardium appears normal. Measurements Name Value Normal Range RVIDd (AP) 2D 3 cm (0.9 - 2.6) RVDdMajor (2D) 3.9 cm (2.2 - 4.4) RAd ISD 4CH 5.7 cm (3.4 - 4.9) RA (A4C)W 4.8 cm (2.9 - 4.6) IVSd (2D) 1.7 cm (0.6 - 1) LVPWd (2D) 1.6 cm (0.6 - 1) LVIDd (2D) 3.8 cm (3.6 - 5.4) LVIDs (2D) 3 cm - LV FS (2D) 21 % (25 - 45) Aortic Annulus 1.9 cm (1.4 - 2.6) Ao root diameter (2D) 3.2 cm (2.1 - 3.5) Ascending Ao 3 cm (2.1 - 3.4) Aortic arch 2.4 cm (1.8 - 3.4) Descending Ao 1 cm - LA dimension (AP) 2D 4.5 cm (2.3 - 3.8) LAd ISD 4CH 6.6 cm (2.9 - 5.3) LA ISD 4CH W 5 cm (2.5 - 4.5) Name Value Normal Range LA ESV SP 4CH (A/L) 101 ml - LA ESV SP 2CH (A/L) 94 ml - LA ESV BP (A/L) 103 ml - LA ESV BP (A/L) index 47.78 ml/m2 - LA ESV SP 4CH (MOD) 93 ml - LA ESV SP 2CH (MOD) 91 ml - Name Value Normal Range MV E-wave Vmax 0.9 m/sec - MV deceleration time 234 msec - MV A-wave Vmax 0.8 m/sec - MV E:A ratio 1.17 ratio - LV septal e' Vmax 0.07 m/sec - LV lateral e' Vmax 0.12 m/sec - LV E:e' septal ratio 12.85 ratio - LV E:e' lateral ratio 7.5 ratio - Name Value Normal Range AV Vmax 2 m/sec - AV VTI 34.5 cm - AV peak gradient 16.17 mmHg - AV mean gradient 6.74 mmHg - LVOT Vmax 1.1 m/sec - LVOT VTI 21.4 cm - LVOT peak gradient 5.06 mmHg - LVOT mean gradient 2.51 mmHg - AR PHT 734 msec - AR peak gradient 78 mmHg - Name Value Normal Range TR Vmax 3 m/sec - TR peak gradient 36 mmHg - RAP 8 mmHg - RVSP 44 mmHg - Name Value Normal Range PV Vmax 1.3 m/sec - PV peak gradient 6.6 mmHg -
[2017-05-06] MEDS ORDERED: Atorvastatin* 40 MG TAB PO SCH (17:00)
[2017-05-06] MEDS: Lisinopril TAB* 5 MG PO SCH (17:21)
--- NOTE | 2017-05-06 18:15 | ED ---
Velma Denny Nilda, scribed for Ferdinand Kent MD on 05/06/17 at 1226 . HPI Chest Pain - HPI Summary HPI Summary: This patient is a 57 year old M presenting to [facility] with a chief complaint of sharp chest pain intermittently for the last 3 days. The patient rates the pain 8/10 in severity. Symptoms aggravated by movement. Symptoms alleviated by rest but pain is still present. Patient reports near-syncope, nausea, and STEEL. Patient denies edema. PMHx includes CAD. He has stents that are 10 years old. FHx of CAD (father of heart disorder in his 50s). - History of Current Complaint Chief Complaint: EDChestPainROMI Time Seen by Provider: 05/06/17 12:05 Hx Obtained From: Patient Onset/Duration: Started Days Ago - 3 days ago, Still Present Timing: Constant Current Severity: Severe Pain Intensity: 8 Pain Scale Used: 0-10 Numeric Chest Pain Location: Diffuse Character: Sharp/Stabbing Aggravating Factor(s): Exertion Alleviating Factor(s): Rest Associated Signs and Symptoms: Positive: Shortness of Breath, Syncope - near- syncope, Nausea. Negative: Edema Related History: Obesity - Allergy/Home Medications Allergies/Adverse Reactions: Allergies Allergy/AdvReac Type Severity Reaction Status Date / Time No Known Allergies Allergy Verified 05/06/17 12:04 Home Medications: Home Medications Aspirin EC Low Dose* [Ecotrin EC Low Dose 81 MG*] 81 mg PO DAILY 05/06/17 [ History Confirmed 05/06/17] Isosorbide Mononitrate ER TAB* [Imdur ER TAB*] 30 mg PO DAILY 05/06/17 [History Confirmed 05/06/17] PMH/Surg Hx/FS Hx/Imm Hx Endocrine/Hematology History: Denies: Hx Anticoagulant Therapy Cardiovascular History: Reports: Hx Hypertension, Other Cardiovascular Problems/ Disorders - stents Psychiatric History: Reports: Hx Depression, Hx of Violent Episodes Against Others Denies: Hx Eating Disorder - Surgical History Surgery Procedure, Year, and Place: STENT PLACEMENT. COSMETIC SX EYES. HERNIA REPAIR X 3 Infectious Disease History: No Infectious Disease History: Reports: Hx of Known/Suspected MRSA Denies: Traveled Outside the [place] in Last 30 Days - Family History Known Family History: Positive: Cardiac Disease, Hypertension, Diabetes, Other - "psych problems" - Social History Alcohol Use: Weekly Alcohol Amount: Pt states he started drinking alcohol 1 week ago, 2-3 drinks/day Hx Substance Use: No Substance Use Type: Reports: None Hx Tobacco Use: Yes Smoking Status (MU): Former Smoker Review of Systems Positive: Chest Pain Positive: Shortness Of Breath - STEEL Positive: Nausea Negative: Edema Positive: Syncope - near syncope All Other Systems Reviewed And Are Negative: Yes Physical Exam Triage Information Reviewed: Yes Vital Signs On Initial Exam: Initial Vitals Temp Pulse Resp BP Pulse Ox 97.8 F 74 20 157/100 96 05/06/17 11:33 05/06/17 11:33 05/06/17 11:33 05/06/17 11:33 05/06/17 11:33 Vital Signs Reviewed: Yes Appearance: Positive: Well-Appearing, No Pain Distress, Obese Skin: Positive: Warm, Skin Color Reflects Adequate Perfusion, Dry Head/Face: Positive: Normal Head/Face Inspection Eyes: Positive: Normal ENT: Positive: Normal ENT inspection Neck: Positive: Supple, Nontender Respiratory/Lung Sounds: Positive: Clear to Auscultation, Breath Sounds Present Cardiovascular: Positive: RRR, Murmur - Soft systolic ejection murmur Abdomen Description: Positive: Nontender, Soft Bowel Sounds: Positive: Present Musculoskeletal: Positive: Normal Neurological: Positive: Normal Psychiatric: Positive: Normal, Affect/Mood Appropriate - [place] Coma Scale Coma Scale Total: 15 Diagnostics - Vital Signs Vital Signs Temp Pulse Resp BP Pulse Ox 05/06/17 12:00 65 19 167/112 96 05/06/17 11:58 66 19 95 05/06/17 11:57 173/93 05/06/17 11:33 97.8 F 74 20 157/100 96 - Laboratory Lab Results: Lab Results 05/06/17 05/06/17 05/06/17 Range/Units 12:40 12:40 12:40 WBC 7.3 (3.5-10.8) 10^3/ul RBC 4.64 (4.0-5.4) 10^6/ul Hgb 14.0 (14.0-18.0) g/dl Hct 41 L (42-52) % MCV 89 (80-94) fL MCH 30 (27-31) pg MCHC 34 (31-36) g/dl RDW 14 (10.5-15) % Plt Count 191 (150-450) 10^3/ul MPV 8 (7.4-10.4) um3 Neut % (Auto) 65.3 (38-83) % Lymph % (Auto) 22.8 L (25-47) % [place] % (Auto) 6.7 (1-9) % Eos % (Auto) 3.8 (0-6) % Baso % (Auto) 1.4 (0-2) % Absolute Neuts (auto) 4.8 (1.5-7.7) 10^3/ul Absolute Lymphs (auto) 1.7 (1.0-4.8) 10^3/ul Absolute Monos (auto) 0.5 (0-0.8) 10^3/ul Absolute Eos (auto) 0.3 (0-0.6) 10^3/ul Absolute Basos (auto) 0.1 (0-0.2) 10^3/ul Absolute Nucleated RBC 0 10^3/ul Nucleated RBC % 0 INR (Anticoag Therapy) 0.95 (0.89-1.11) Sodium 137 (133-145) mmol/L Potassium 3.9 (3.5-5.0) mmol/L Chloride 105 (101-111) mmol/L Carbon Dioxide 27 (22-32) mmol/L Anion Gap 5 (2-11) mmol/L BUN 21 (6-24) mg/dL Creatinine 0.98 (0.67-1.17) mg/dL Est GFR ( Amer) 101.8 (>60) Est GFR (Non-Af Amer) 79.1 (>60) BUN/Creatinine Ratio 21.4 H (8-20) Glucose 105 H (70-100) mg/dL Lactic Acid (0.5-2.0) mmol/L Calcium 9.2 (8.6-10.3) mg/dL Total Bilirubin 0.40 (0.2-1.0) mg/dL AST 24 (13-39) U/L ALT 13 (7-52) U/L Alkaline Phosphatase 83 (34-104) U/L Troponin I 0.01 (<0.04) ng/mL Total Protein 6.8 (6.4-8.9) g/dL Albumin 4.0 (3.2-5.2) g/dL Globulin 2.8 (2-4) g/dL Albumin/Globulin Ratio 1.4 (1-3) 05/06/17 05/06/17 Range/Units 12:40 15:27 WBC (3.5-10.8) 10^3/ul RBC (4.0-5.4) 10^6/ul Hgb (14.0-18.0) g/dl Hct (42-52) % MCV (80-94) fL MCH (27-31) pg MCHC (31-36) g/dl RDW (10.5-15) % Plt Count (150-450) 10^3/ul MPV (7.4-10.4) um3 Neut % (Auto) (38-83) % Lymph % (Auto) (25-47) % Camb[place] % (Auto) (1-9) % Eos % (Auto) (0-6) % Baso % (Auto) (0-2) % Absolute Neuts (auto) (1.5-7.7) 10^3/ul Absolute Lymphs (auto) (1.0-4.8) 10^3/ul Absolute Monos (auto) (0-0.8) 10^3/ul Absolute Eos (auto) (0-0.6) 10^3/ul Absolute Basos (auto) (0-0.2) 10^3/ul Absolute Nucleated RBC 10^3/ul Nucleated RBC % INR (Anticoag Therapy) (0.89-1.11) Sodium (133-145) mmol/L Potassium (3.5-5.0) mmol/L Chloride (101-111) mmol/L Carbon Dioxide (22-32) mmol/L Anion Gap (2-11) mmol/L BUN (6-24) mg/dL Creatinine (0.67-1.17) mg/dL Est GFR ( Amer) (>60) Est GFR (Non-Af Amer) (>60) BUN/Creatinine Ratio (8-20) Glucose (70-100) mg/dL Lactic Acid 1.5 (0.5-2.0) mmol/L Calcium (8.6-10.3) mg/dL Total Bilirubin (0.2-1.0) mg/dL AST (13-39) U/L ALT (7-52) U/L Alkaline Phosphatase (34-104) U/L Troponin I 0.01 (<0.04) ng/mL Total Protein (6.4-8.9) g/dL Albumin (3.2-5.2) g/dL Globulin (2-4) g/dL Albumin/Globulin Ratio (1-3) Result Diagrams: 05/06/17 12:40 05/06/17 12:40 Lab Statement: Any lab studies that have been ordered have been reviewed, and results considered in the medical decision making process. - Radiology CXR Radiology Interpretation Completed By: Radiologist - No active cardiopulmonary disease. ED physician has reviewed this radiology report and agrees. - EKG 1133 Cardiac Rate: NL - 66 bpm EKG Rhythm: Sinus Rhythm EKG Interpretation: Non-specific changes Chest Pain Course/Dx - Course Course Of Treatment: Mr. Duong tells me his chest pain comes on with exertion. If he walks 75 feet it will happen and he has to rest for a long time for it to go away. This sounds like unstable angina to me and the hospitalist have been asked to see him. - Diagnoses Provider Diagnoses: Unstable angina Discharge - Discharge Plan Condition: Good Disposition: ADMITTED TO [facility] Referrals: Julisa VAZQUEZ,Clyde Carroll [Primary Care Provider] - The documentation as recorded by the Velma aguilar Nilda accurately reflects the service I personally performed and the decisions made by me, Ferdinand Kent MD.
--- NOTE | 2017-05-06 18:47 | HP ---
CC: Dr. Egan; Dr. Oden HISTORY AND PHYSICAL: DATE OF ADMISSION: 05/06/17 CONSULTING FLAT HAMMERER: Dr. Oden. MY ATTENDING PHYSICIAN WHILE IN THE HOSPITAL: Dr. Aidan Abbasi * (report dictated by Chet Pan NP) CHIEF COMPLAINT: Chest pain. HISTORY OF PRESENT ILLNESS: Mr. Duong is a 57-year-old male patient who has a history of coronary artery disease, hypertension, LA, history of depression as well who 10 years ago, did have an LA and he had 3 stents put in down at [facility]. He comes in to the ER today stating that over the last couple of months, he has had intermittent chest pain brought on by exertion. Over the last week, the duration and frequency have been getting more severe. He can only walk 75 feet. He gets short of breath. He gets nauseated and becomes diaphoretic that goes down his arms. He does have a history of former smoking. Family history of heart disease as well. He actually saw his primary block sealer. He says about a month ago, he started on a new med, he does not know the dose of the med or what the med was, but he says that he has been taking his medications especially his heart pill as prescribed, and despite this, he was deteriorating. He is supposed to have followup with Dr. Dubois to see how he was doing with new medications, but he missed the appointment and he unfortunately was not able to get back in until the middle of June. So, the patient thought that it would be safer to get evaluated in the ED, so he came into the [facility] today to be evaluated for chest discomfort. He denies any recent fevers, no cough. No recent trips or travel. No calf pain or leg tenderness or any worsening of pain with position or pain with taking a deep breath. He says the pain feels like a pressure, squeezing, tightness on his chest. The patient was concerned, came into the ED today to be evaluated. He was evaluated by Dr. Kent, there was concern that this may represent unstable angina or acute coronary syndrome. We were asked for evaluate for admission. PAST MEDICAL HISTORY: Significant for: 1. LA. 2. CAD. 3. Hypertension. 4. Depression. PAST SURGICAL HISTORY: The patient has had: 1. Heart catheterization 10 years ago at [facility]. Recently, he had a heart catheterization at [facility] about a year ago, I will try to get those records. 2. Hernia repair x3. 3. Cosmetic eye surgery. MEDICATIONS: The home meds that we have right now according to our resources include: 1. Trazodone 150 mg p.o. at bedtime. 2. Minipress 5 mg p.o. daily. 3. Celexa 40 mg daily. 4. Aspirin 81 mg daily. ALLERGIES TO MEDICATIONS: Include no known drug allergies. FAMILY HISTORY: Father had a history of LA and CAD. Mother, he said had multiple medical problems but is not sure which ones and she has as well in her 50s. SOCIAL HISTORY: He is a former smoker, he quit about 20 years ago, he rarely drinks alcohol. He is . Surrogate decision maker is his . REVIEW OF SYSTEMS: There is no documented fever. He denied having any significant weight change. There was no double vision. He denies having any ear discharge. There was no rhinorrhea. No sore throat, no thyroid enlargement. Denies having had any chest pain. There is no orthopnea, there is no nocturnal dyspnea. He denies having any abdominal discomfort. There was no loss of consciousness. No pruritus, no skin ulcerations. Review of 14 systems completed, all others negative. PHYSICAL EXAMINATION GENERAL: At this time, Mr. Duong is a 57-year-old male patient. He is sitting in the ER stretcher. He does not appear to be in any acute distress. VITAL SIGNS: Reveal blood pressure 177/87 with a pulse of 65, respirations 18, O2 sat 95%, temperature 97.8. HEENT: Head: Atraumatic, normocephalic. Eyes: EOMs intact. Sclerae anicteric, not pale. Throat: Oral mucosa appears to be moist. No oropharyngeal erythema. NECK: Supple. LUNGS: Clear to auscultation. No wheezes, rales or rhonchi. HEART: Sounds S1, S2. Regular rate and rhythm. No murmurs, rubs, or gallops. ABDOMEN: Soft, flat, nontender. Bowel sounds present. EXTREMITIES: Pulses 2+ throughout. He had no peripheral edema. He is able to move all 4 extremities with 5/5 strength. NEUROLOGIC: The patient is awake, alert, oriented x3. Tongue is midline. Liaison Officer equal. No gross focal deficits. SKIN: Intact. DIAGNOSTIC STUDIES/LAB DATA: Revealed WBC of 7.3, RBC of 4.64, hemoglobin of 14.0, hematocrit of 41, platelet count of 191. The INR was 0.95. Sodium was 137, potassium was 3.9, chloride of 105, bicarb 27, BUN 21, creatinine 0.98, glucose 105, lactate 1.5, calcium 9.2. Total bili 0.4, AST 24, ALT 13, alk phos 83. Troponin 0. He had a chest x-ray obtained today which revealed no active cardiopulmonary disease. He had an EKG obtained today as well which revealed normal sinus rhythm with a rate of 66. No ST elevations were noted, T-wave inversions. It was reviewed to his previous EKG, it is similar. Old medical records were reviewed. ASSESSMENT AND PLAN: Mr. Duong is a 57-year-old male patient with multiple medical problems coming in to the ER today with complaints of chest pain that is exertional, that has being getting much worse over the last couple of weeks. He will be admitted under observation status for: 1. Chest pain. I am concerned this may represent acute coronary syndrome. I did touch base with Dr. Oden. I am going to start him on nitro paste, beta nas, and aspirin. I will cycle his troponin. Should they go up, I will start him on heparin or Lovenox, most likely heparin. We will go ahead and get a nuclear stress test, Cardiology consult. I did order an echo, I will place him on telemetry. We will follow him closely and I will try to get those cath reports from [facility]. 2. Coronary artery disease. He has been on aspirin, beta nas, and nitrites. He is not on statin. We will get a lipid panel in the morning before we start. 3. Hypertension. Blood pressure here is in the 170s, I would like to get that down, we will give nitro paste and metoprolol. 4. Depression. Continue supportive care. 5. DVT prophylaxis. We will go ahead and put him on heparin subcu. 6. Fluids, electrolytes, and nutrition. He can have a heart healthy diet. 7. Code status: Full code. TIME SPENT: On admission 60 minutes, greater than half the time was spent face- to- face with the patient obtaining my history and physical, the other half time was spent going over the plan of care with the patient and implementing the plan of care. I did discuss the plan of care with attending, Dr. Abbasi; he is in agreement. CHET PAN NP [id number]/CPS #: [id number] ALFREDO
[2017-05-06] MEDS: Heparin VIAL(*) 5000 UNITS/ML VIAL (FIVE THOUSAND) SUBCUT SCH (21:24)
[2017-05-07 05:19] LABS: Hemoglobin 13.9 g/dl (14.0-18.0); Mean Corpuscular HGB Conc 34 g/dl (31-36); Mean Corpuscular Hemoglobin 30 pg (27-31); Red Blood Count 4.58 10^6/ul (4.0-5.4)
[2017-05-07 05:21] LABS: Hematocrit 41 % (42-52); Mean Corpuscular Volume 89 fL (80-94); Mean Platelet Volume 8 um3 (7.4-10.4); Red Cell Distribution Width 14 % (10.5-15)
[2017-05-07 05:23] LABS: Comments Flag Yes
[2017-05-07 05:30] LABS: BUN/Creatinine Ratio 20.6 (8-20); Calcium 8.8 mg/dL (8.6-10.3); EGFR Non-African American 80.1 (>60); Potassium 3.9 mmol/L (3.5-5.0)
[2017-05-07] MEDS: Heparin VIAL(*) 5000 UNITS/ML VIAL (FIVE THOUSAND) SUBCUT SCH (05:50)
[2017-05-07] MEDS ORDERED: Citalopram TAB* 40 MG PO SCH (09:00)
[2017-05-07] MEDS ORDERED: Prazosin CAP* 5 MG PO SCH (09:00)
[2017-05-07] MEDS ORDERED: Aspirin Low Dose CHEW TAB* 81 MG PO SCH (09:00)
[2017-05-07] MEDS ORDERED: Aspirin EC Low Dose* 81 MG TAB.EC PO SCH (09:00)
[2017-05-07] MEDS ORDERED: Regadenoson* 0.4 MG/5 ML SYRINGE ONE (11:47)
[2017-05-07] MEDS ORDERED: Aminophylline IV* 25 MG/ML 10 ML VIAL ONE (11:47)
[2017-05-07] MEDS: Metoprolol Tartrate TAB* 25 MG PO SCH (11:51)
[2017-05-07] MEDS: Nitroglycerin 2% OINT* 1 GM PAK TOPICAL SCH (11:51)
[2017-05-07] MEDS: Lisinopril TAB* 5 MG PO SCH (11:52)
--- NOTE | 2017-05-07 11:53 | RAD ---
HISTORY: Coronary artery disease, chest pain, hypertension, cardiac catheterization COMPARISONS: None TECHNIQUE: A 1 day stress/rest myocardial perfusion study was performed, with pharmacologic stress. The stress portion was monitored by Dr. Oden. Gated SPECT imaging was performed, with CT-based attenuation correction DOSE: Stress: Technetium 99m tetrofosmin, 25.88 millicuries, injected at 9:15 AM on May 07, 2017 Rest: Technetium 99m tetrofosmin, 10.56 millicuries, injected at 6:48 AM on May 07, 2017 Pharmacologic agent: Lexiscan FINDINGS: CARDIAC MONITORING: No EKG changes of ischemia with stress EF: 52 % TID: 1.1 MOTION: Normal motion, with normal wall thickening. PERFUSION: There is a defect of the inferior wall which resolves with attenuation correction considered artifactual. There are small reversible defects on the attenuation corrected images which likely represent misregistration artifact. There is no definite fixed or reversible perfusion defect. OTHER: None IMPRESSION: NO DEFINITE FIXED OR REVERSIBLE PERFUSION DEFECTS ASSESSMENT: LOW RISK. Based on imaging criteria from ACC/AHA 2002. Guideline Update for the Management of Patient's with Chronic Stable Angina, table 23. Noninvasive Risk Stratification.
--- NOTE | 2017-05-07 13:17 | DCNOTE ---
Patient seen this morning after stress test. Spoke with Dr. Oden who stated exercise stress test had to be aborted after 4 mins due to HTN. Transitioned to chemical stress test with no ischemia noted on imaging. Patient denies any chest pain. Very flustered during my interview, says he does not like being inside and is unwilling to stay in the hospital another night. Became very frustrated when I asked what medications he is on at home "I already told them, I don't remember the names of them". On exam, RRR, s1 and s2 present, no m/g/r, lungs with some mild wheezing, good air movement, no LE edema Dr. Oden and I both recommended the patient remain in the hospital for another night to ensure BP remains controlled but patient says he is not willing to do this. He said he will contact his PCP and [facility] for follow-up and will check his BPs at the pharmacy in the next 1-2 days.
[2017-05-07 13:18] VITALS: BP 110/65
--- NOTE | 2017-05-07 13:46 | CONS ---
CC: Dr. Mango Dubois, Cardiology, [facility], [place], [place] CARDIOLOGY CONSULTATION REPORT: DATE OF CONSULT: 05/06/17 INDICATION FOR CONSULT: Chest pain, coronary artery disease. HISTORY OF PRESENT ILLNESS: The patient is a 57-year-old gentleman with a history of coronary arter y disease, he had stenting to his left circumflex artery in the past, is admitted to the hospital wi th chest pain. The patient states for the past couple of weeks, he has been noticing increased ches t pain with exertion. The patient states that he always has some mild chest pain with exertion. Th is has been present for quite some time. However, in the last couple of weeks, there has been more significant chest pain with less activity. He denies any rest angina. The patient states when he go es out and walks, he walks for about 50 or 100 feet and starts having the chest pain. If he rests, the symptoms go away. It takes about 5 minutes for them to go away. He takes occasional nitroglyce rin for it. The patient has not had any recent changes in his medication. No other recent hospitali zations. When the patient gets his chest pain, it is in the center of his chest. It does not radia te to his jaw or to his arm. He denies any palpitations. He denies any lightheadedness, dizziness, or syncope. PAST MEDICAL HISTORY: Significant for coronary artery disease. He has stenting to his left circumf jose artery in the distant past. The patient did have a cardiac catheterization in April of 2016 for chest pain. At that time, his stents to his left circumflex artery were open and patent. His left main and LAD arteries were without disease. His right coronary artery had mild diffuse disease . He was kept on medical therapy at that time. Other past medical history hypertension, depression. OUTPATIENT MEDICATIONS: 1. Trazodone 150 mg q.h.s. 2. Minipress 5 mg daily. 3. Celexa 40 mg a day. 4. Aspirin 81 mg a day. ALLERGIES: No known drug allergies. FAMILY HISTORY: Mother had multiple medical problems including diabetes. She is in her mi d 50s. SOCIAL HISTORY: He is a previous smoker. He quit 20 years ago. Rare alcohol intake. He is marrie d. He is currently not working. REVIEW OF SYSTEMS: Are per his intake sheet. PHYSICAL EXAM: Height is 5 feet 7 inches, weight 217 pounds, temperature of 97.6, heart rate is 51, blood pressure 154/85, respiratory rate is 18, oxygen saturation 97% on room air. Sclerae anicteri c. Oropharynx is pink without erythema. He does have poor dentition. Carotids are 2+ without brui ts. JVD is normal. Thyroid is normal. Cardiac Exam: S1, S2 without any murmurs, rubs, or gallops . PMI is normal. Lungs have mildly decreased breath sounds. There were no rhonchi or wheezes. Th ere was no dullness to percussion. Abdomen is soft, nontender, nondistended with normoactive bowel sounds. Extremities show no edema. He has 2+ pulses throughout. The patient is awake, alert, and oriented. He moves all 4 extremities equally. The patient is able to ambulate without difficulties . DIAGNOSTIC STUDIES/LAB DATA: CBC within normal limits. Chemistries within normal limits. Troponin s are negative x3. AST and ALT are within normal limits. Echocardiogram demonstrates severely LVH with normal LV function. No significant valvular abnormali ties. The patient underwent an exercise nuclear stress test on 05/07/17. The patient did exercise for 4.5 minutes, he had mild chest pain; however, he had severe hypertension. His blood pressure went up t o 230/150 and test was stopped because of his headache and high blood pressure. The patient was tra nsitioned over to a chemical nuclear stress test. His perfusion images after the nuclear stress ilana t showed normal perfusion throughout the myocardium. No evidence of ischemia or infarction. No deanna dence of LV dysfunction. His ejection fraction was calculated at 55%. IMPRESSION AND PLAN: This is a 57-year-old gentleman with a history of coronary artery disease, who was admitted to the hospital with chest pain. The patient ruled out for myocardial infarction. Hi s echocardiogram does show severe left ventricular hypertrophy. On exercise, his blood pressure ros e dramatically to a peak blood pressure of 232/150. His nuclear images demonstrate normal perfusion without evidence of ischemia or infarction. My impression is that the patient's coronary artery disease appears to be stable. He does not have a ny evidence of critical stenosis. I think the patient's chest pain is due to hypertension and poor blood pressure control. The patient has had changes to his medications. The patient will need to c ontinue on medications and have his blood pressure followed very closely. At this point, I do not t hink the patient requires a cardiac catheterization. The patient can continue to follow up with Dr. Dubois as an outpatient. [id number]/[facility] #: [id number]
--- NOTE | 2017-05-08 01:12 | DS ---
CC: JAQUELIN Vang; Dr. Dubois * DISCHARGE SUMMARY: DATE OF ADMISSION: 05/06/17 DATE OF DISCHARGE: 05/07/17 PRIMARY CARE PHYSICIAN: JAQUELIN Vang PRINCIPAL DISCHARGE DIAGNOSES: 1. Uncontrolled hypertension. 2. Chest pain. SECONDARY DIAGNOSES: 1. Coronary artery disease. 2. Myocardial infarction. 3. Depression. DISCHARGE MEDICATION REGIMEN: 1. Atorvastatin 40 mg by mouth daily. 2. Lisinopril 5 mg by mouth daily. 3. Metoprolol tartrate 25 mg by mouth 2 times daily. 4. Citalopram 40 mg by mouth daily. 5. Prazosin 5 mg by mouth daily. 6. Trazodone 150 mg by mouth at bedtime. 7. Aspirin 81 mg by mouth daily. STUDIES DONE DURING HOSPITALIZATION: Chest x-ray, impression: "No active cardiopulmonary disease." Transthoracic echocardiogram, conclusions: Global left ventricular wall motion and contractility are within normal limits. Normal systolic ejection fraction, mild aortic regurgitation, no evidence of aortic stenosis, mild mitral regurgitation, mild tricuspid regurgitation. There was evidence of mild pulmonary hypertension. The pericardium appears normal. Nuclear cardiac stress test, impression: No definite fixed or reversible perfusion defects. Assessment, low risk. CONSULTANTS DURING HOSPITALIZATION: Dr. Trevor Timmons, Cardiology. HISTORY OF PRESENT ILLNESS AND HOSPITAL SUMMARY: Please see the full history and physical by Chet Pan NP for full details. Briefly, Mr. Duong is a 57- year-old man with a past medical history as above who presented to the hospital with ongoing exertional dyspnea and chest pain. The patient states these symptoms have been going on for the past few weeks. He feels that they may have been getting more severe. He states that the last time he had his blood pressures checked was at his psychiatrist's office and he states that they were high, although cannot recall exactly what the numbers were. Due to the patient's symptoms, there was concern for possible ischemic etiology of his pain. He was monitored overnight, his troponins were trended but remained negative. He underwent a nuclear cardiac stress test as above that did not show any evidence of ischemia; however, I was alerted by Dr. Oden that during exercise, the patient's blood pressure became significantly elevated with systolics in the 200's and he needed to be converted to a chemical stress test instead. Dr. Oden recommended some medication changes, which were implemented with improvement in the patient's blood pressure, the last one checked here in the hospital was 110/65. Dr. Oden recommended we monitor the patient for another night and I brought this up with the patient and urged him to consider this as well; however, he was very adamant about going home and he refused to spend any more time in the hospital. He states he will take his medications as prescribed and will check his blood pressure in the next day or two at the pharmacy and will be sure to alert his PCP office if his pressures are elevated. Total time spent on this discharge, 45 minutes. This is a summary of the hospitalization. Please see the full medical record for further details. [id number]/[facility] #: [id number] MTDD
== END 2017-05-07 15:20 | disposition home or self-care (01) ==
LOC: ED 11:31 → MEDTELE 13:43 → ED 16:00
PROVIDERS: ADMIT Internal Medicine; ATTEND Hospitalist
DX: I10 Essential (primary) hypertension (principal); R07.9 Chest pain, unspecified; I25.10 Atherosclerotic heart disease of native coronary artery without angina pectoris; I25.2 Old myocardial infarction; F32.9 Major depressive disorder, single episode, unspecified; I51.7 Cardiomegaly; Z79.899 Other long term (current) drug therapy; Z79.82 Long term (current) use of aspirin; Z95.5 Presence of coronary angioplasty implant and graft; Z87.891 Personal history of nicotine dependence
CPT/HCPCS: 36415; 71010; 78452; 80048; 80053; 83605; 84484; 85025; 85610; 87641; 93005; 93017; 93306; 96372; 99284; A9270-GY; A9502; G0378; J0280; J1644; J2785

== ENCOUNTER 2017-06-15 17:18 | Inpatient (IN) | payer OTHER ==
[2017-06-15] MEDS ORDERED: hydrOXYzine HCL TAB* 50 MG PO PRN (21:24)
[2017-06-15 21:55] LABS: ALT 17 U/L (7-52); AST 28 U/L (13-39); Acetaminophen < 15 mcg/mL; Albumin 4.4 g/dL (3.2-5.2); Alcohol < 10 mg/dL (<10); Alkaline Phosphatase 104 U/L (34-104); Anion Gap 8 mmol/L (2-11); BUN/Creatinine Ratio 13.4 (8-20); Blood Urea Nitrogen 13 mg/dL (6-24); CO2 Carbon Dioxide 25 mmol/L (22-32); Calcium 9.5 mg/dL (8.6-10.3); Chloride 104 mmol/L (101-111); EGFR Non-African American 80.1 (>60); Glucose 89 mg/dL (70-100); Potassium 3.6 mmol/L (3.5-5.0); Salicylate < 2.50 mg/dL (<30); Sodium 137 mmol/L (133-145); Total Protein 7.4 g/dL (6.4-8.9)
[2017-06-15 21:56] LABS: Comments Flag Yes; Hematocrit 43 % (42-52); Hemoglobin 14.5 g/dl (14.0-18.0); Mean Corpuscular HGB Conc 34 g/dl (31-36); Mean Corpuscular Hemoglobin 30 pg (27-31); Mean Corpuscular Volume 90 fL (80-94); Red Blood Count 4.83 10^6/ul (4.0-5.4); Red Cell Distribution Width 15 % (10.5-15); White Blood Count 9.8 10^3/ul (3.5-10.8)
[2017-06-15 21:57] LABS: Add Diff/Slide Review? Slide Review Added
[2017-06-15] MEDS: Metoprolol Tartrate TAB* 25 MG PO SCH (22:04)
[2017-06-15] MEDS: Lisinopril TAB* 5 MG PO SCH (22:04)
[2017-06-15] MEDS: Atorvastatin* 40 MG TAB PO SCH (22:04)
[2017-06-15] MEDS: Citalopram TAB* 40 MG PO SCH (22:05)
[2017-06-15 22:11] LABS: TSH (Thyroid Stimulating Horm) 1.72 mcIU/mL (0.34-5.60)
[2017-06-15 22:55] LABS: Urine Bilirubin Negative (Negative); Urine Glucose Negative (Negative); Urine Nitrite Negative (Negative)
[2017-06-15 23:08] LABS: Benzodiazepine Urine Screen None Detected (None Detect)
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
[2017-06-16] MEDS: Prazosin CAP* 5 MG PO SCH ×2 (01:28→22:45)
[2017-06-16] MEDS: traZODone TAB* 100 MG PO SCH ×2 (01:30→22:41)
[2017-06-16] MEDS: Isosorbide Mononitrate ER TAB* 30 MG PO SCH (11:00)
[2017-06-16] MEDS: Metoprolol Tartrate TAB* 25 MG PO SCH ×2 (11:00→22:41)
--- NOTE | 2017-06-16 13:38 | ED ---
Progress - Progress Note Progress Note: HPI/Subjective: CC: This patient is a 57 year old M brought in by police to [facility] with a chief complaint of SI worse since earlier today. The patient reports "I had a glass full of pills" and that he "doesn't have the balls to take his own life." Symptoms aggravated by recent stress (). Symptoms alleviated by nothing. Patient reports depression and denies substance abuse today. Denies self harm. Denies any pain. Denies history of such. Social history includes many years of incarceration. Former smoker. Occasional drinker. . Decision maker is his . Constitutional: The patient denies fever, YOU. HEENT: Head: The patient denies headaches or dizziness. Eyes: The patient denies diplopia, blurry vision, eye pain, eye discharge, photophobia. Throat: The patient denies sore throats or hoarseness. Cardiovascular: The patient denies chest pain, palpitations, syncope, night cramps, or orthostasis. Respiratory: The patient denies cough, sputum production, hemoptysis, dyspnea, wheezing. Gastrointestinal: The patient denies odynophagia, dysphagia, hematemesis, melenemesis. Denies abdominal pain, nausea or vomiting. Denies constipation or diarrhea. Muscles: The patient denies myalgia, strain or weakness. Joints: The patient denies arthralgia and/or arthritis. Neurologic: The patient denies headache, loss of consciousness, or seizure. Dermatologic: The patient denies hyperpigmentation, rash, or photosensitivity. Psych: Suicidal ideations. Objective: Appearance: WDW, comfortable, pleasant, alert Skin: Soft dry skin, no lesions. Nailbeds pink with no cyanosis or clubbing. No petechia noted. Eyes: LAYLA, EOMI, Conjunctiva pink with no redness or exudates. Mouth: Dentition without lesions. Moist mucosa Neck: Full range of motion. Palpable thyroid. Trachea at midline. No lymphadenopathy. Pulm: Chest symmetrical expansion. No deformities on posterior chest wall. Lungs clear to auscultation and percussion, without adventitious sounds. CV: No JVD. No deformities on anterior chest wall. Heart soundsRRR, Normal S1 and single S2. No S3, S4, rubs, or murmurs. Carotids 2+ bilaterally without bruits. . exam not performed Neuro: Motor strength is 5/5 in upper and lower extremities bilaterally. A&OX3 Psych: Logical, coherent; Suicidal ideations. Denies allergies Medication use includes: 1. Trazadone 150mg PO at bedtime 2. Minipress 5mg PO daily 3. Celexa 40mg daily 4. Aspirin 81mg daily Alcohol History Alcohol Use None Alcohol Amount Pt states he started drinking alcohol 1 week ago , 2-3 drinks/day Laboratory Results - last 24 hr 06/15/17 06/15/17 06/15/17 19:00 19:00 19:00 WBC 9.8 RBC 4.83 Hgb 14.5 Hct 43 MCV 90 MCH 30 MCHC 34 RDW 15 Plt Count 180 Neut % (Auto) 73.8 Lymph % (Auto) 17.5 L [place] % (Auto) 6.0 Eos % (Auto) 2.0 Baso % (Auto) 0.7 Absolute Neuts (auto) 7.2 Absolute Lymphs (auto) 1.7 Absolute Monos (auto) 0.6 Absolute Eos (auto) 0.2 Absolute Basos (auto) 0.1 Absolute Nucleated RBC 0.02 Nucleated RBC % 0.2 Sodium 137 Potassium 3.6 Chloride 104 Carbon Dioxide 25 Anion Gap 8 BUN 13 Creatinine 0.97 Est GFR ( Amer) 103.0 Est GFR (Non-Af Amer) 80.1 BUN/Creatinine Ratio 13.4 Glucose 89 Calcium 9.5 Total Bilirubin 0.60 AST 28 ALT 17 Alkaline Phosphatase 104 Total Protein 7.4 Albumin 4.4 Globulin 3.0 Albumin/Globulin Ratio 1.5 TSH 1.72 Urine Color Urine Appearance Urine pH Ur Specific [place] Urine Protein Urine Ketones Urine Blood Urine Nitrate Urine Bilirubin Urine Urobilinogen Ur Leukocyte Esterase Urine Glucose Salicylates < 2.50 Urine Opiates Screen None detected Acetaminophen < 15 Ur Barbiturates Screen None detected Ur Phencyclidine Scrn None detected Ur Amphetamines Screen None detected U Benzodiazepines Scrn None detected Urine Cocaine Screen None detected U Cannabinoids Screen None detected Serum Alcohol < 10 06/15/17 19:00 WBC RBC Hgb Hct MCV MCH MCHC RDW Plt Count Neut % (Auto) Lymph % (Auto) [place] % (Auto) Eos % (Auto) Baso % (Auto) Absolute Neuts (auto) Absolute Lymphs (auto) Absolute Monos (auto) Absolute Eos (auto) Absolute Basos (auto) Absolute Nucleated RBC Nucleated RBC % Sodium Potassium Chloride Carbon Dioxide Anion Gap BUN Creatinine Est GFR ( Amer) Est GFR (Non-Af Amer) BUN/Creatinine Ratio Glucose Calcium Total Bilirubin AST ALT Alkaline Phosphatase Total Protein Albumin Globulin Albumin/Globulin Ratio TSH Urine Color Yellow Urine Appearance Clear Urine pH 6.0 Ur Specific [place] 1.018 Urine Protein Negative Urine Ketones Negative Urine Blood Negative Urine Nitrate Negative Urine Bilirubin Negative Urine Urobilinogen Negative Ur Leukocyte Esterase Negative Urine Glucose Negative Salicylates Urine Opiates Screen Acetaminophen Ur Barbiturates Screen Ur Phencyclidine Scrn Ur Amphetamines Screen U Benzodiazepines Scrn Urine Cocaine Screen U Cannabinoids Screen Serum Alcohol Assessment: Suicidal ideations with new stressors of home life Plan of treatment: Care of psychiatrist to make a safe decision making plan/ Plan to transfer to higher level of care facility. Patient is medically cleared for transfer - Consult/PCP Time Called: 19:00 Course/Dx - Course Course Of Treatment: MHE PENDING AT SHIFT CHANGE. - Diagnoses Provider Diagnoses: Mental health problem
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
[2017-06-16] MEDS: Atorvastatin* 40 MG TAB PO SCH (22:41)
[2017-06-16] MEDS: Lisinopril TAB* 5 MG PO SCH (22:42)
[2017-06-16] MEDS: Citalopram TAB* 40 MG PO SCH (22:42)
[2017-06-17] MEDS: Metoprolol Tartrate TAB* 25 MG PO SCH ×2 (09:59→20:20)
[2017-06-17] MEDS ORDERED: Al Hydrox/Mg Hydrox/Simet LIQ* 30 ML UDC PO PRN (15:09)
[2017-06-17] MEDS ORDERED: Acetaminophen TAB* 325 MG PO PRN (15:09)
--- NOTE | 2017-06-17 16:15 | ED ---
Darius Denny Angela, scribed for Susie Rodriguez MD on 06/17/17 at 1554 . Progress - Progress Note Progress Note: This pt was signed out at shift change, pending disposition, awaiting MHE. Pt was seen and evaluated by Dr. Haddad, who recommends admission. Pt will be voluntarily admitted. pt will be admitted to [facility] in stable condition with a diagnosis of depression and suicidal ideation with a plan. Course/Dx - Diagnoses Provider Diagnoses: Depression, Suicidal ideation The documentation as recorded by the Darius aguilar Angela accurately reflects the service I personally performed and the decisions made by Michael addison Abdul, MD.
[2017-06-17] MEDS ORDERED: Atorvastatin* 10 MG TAB ONE (17:53)
[2017-06-17] MEDS: Atorvastatin* 40 MG TAB PO SCH (18:23)
[2017-06-17] MEDS: Lisinopril TAB* 5 MG PO SCH (20:19)
[2017-06-17] MEDS: Prazosin CAP* 5 MG PO SCH (20:19)
[2017-06-17] MEDS: traZODone TAB* 100 MG PO SCH (20:19)
[2017-06-17] MEDS: Citalopram TAB* 40 MG PO SCH (20:19)
[2017-06-18] MEDS: Isosorbide Mononitrate ER TAB* 30 MG PO SCH (08:54)
[2017-06-18] MEDS: Metoprolol Tartrate TAB* 25 MG PO SCH ×2 (08:54→21:29)
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
[2017-06-18] MEDS: Atorvastatin* 40 MG TAB PO SCH (17:16)
[2017-06-18] MEDS: clonazePAM TAB(*) 0.5 MG PO SCH (17:16)
[2017-06-18] MEDS: traZODone TAB* 100 MG PO SCH (21:28)
[2017-06-18] MEDS: Lisinopril TAB* 5 MG PO SCH (21:29)
[2017-06-18] MEDS: Citalopram TAB* 40 MG PO SCH (21:29)
[2017-06-18] MEDS: Prazosin CAP* 5 MG PO SCH (21:29)
[2017-06-19] MEDS: clonazePAM TAB(*) 0.5 MG PO SCH ×2 (10:04→17:03)
[2017-06-19] MEDS: Metoprolol Tartrate TAB* 25 MG PO SCH ×2 (10:04→20:03)
[2017-06-19] MEDS: Atorvastatin* 40 MG TAB PO SCH (17:03)
--- NOTE | 2017-06-19 17:45 | PN ---
Subjective - Subjective Service Type: 02224 Hosp care 15 min low complexity - reports that he feels klonopin is helping him to feel calmer and less agitated. nursing reports that patient has been in good behavioral control. He has been attending groups therapy and is utilizing one to ones with staff to problem solve and work through his current stressors. Objective - Appearance Appearance: Well Developed/Nourished Dysmorphic Features: No Hygiene: Dirty Grooming: Disheveled - Behavior Psychomotor Activities: Normal - less agitated, calmer, Exhibits Abnormal Movement: No - Attitude and Relatedness Attitude and Relatedness: Appropriate Eye Contact: Fair - Speech Quality: Unpressured Latencies: Normal Quantity: Appropriate - Mood Patient's Decription of Mood: anxious - Affect Observed Affect: Tense Affect Consistent with: Dysphoria - Thought Process Patient's Thought Process: Coherent Thought Content: No Passive Wish, No Suicidal Planning, No Homicidal Ideation - Sensorium Experiencing Hallucinations: No, Sensorium is Clear Type of Hallucinations: Visual: No, Auditory: No, Command: No - Level of Consciousness Level of Consciousness: Alert Orientation: Yes Intact, Yes Orientated to Time, Yes Orientated to Place, Yes Orientated to Person - Impulse Control Impulse Control: Impaired - Insight and Judgement Insight and Judgement: Fair - Group Participation Particating in Group Activities: Yes - Medication Management Medication Management Adherence: Yes Assessment - Assessment Merits Inpatient Hospitalization: For Immediate Safety, For Stabilization Inpatient DSM-IV Dx: adjudtment disorder with disturbance of mood and anxious features. mood disorder unspecified. anxiety disorder unspecified. borderline intellectual functioning. Clinical Impression: patient's agitation and level of anxiety are diminished with addition of klonopin 0.5 mg BID. patient reports feeling greater mental clarity, decrased level of anger and less agitation. we discussed addition of low dose of abilify for improved mood stabalization and impulse control patient gave informed consent to take this medication Plan - Plan Treatment Plan: Name: DALILA MONAE Birthdate: 1960 [id number] Continued Medication Management: Different Medication - add Abilify 2 mg QAM for mood stabalization/augmentation of antidepressants medication Medications: Current Medications Acetaminophen (Tylenol Tab*) 650 mg PO Q4H PRN PRN Reason: for pain; or Temp >101 F Al Hydrox/Mg Hydrox/Simethicone (Maalox Plus*) 30 ml PO Q4H PRN PRN Reason: INDIGESTION Atorvastatin Calcium (Lipitor*) 40 mg PO DAILY@1700 [facility] Last Admin: 06/19/17 17:03 Dose: 40 mg Citalopram Hydrobromide (Celexa Tab*) 40 mg PO BEDTIME [facility] Last Admin: 06/18/17 21:29 Dose: 40 mg Clonazepam (Klonopin Tab(*)) 0.5 mg PO BID@0900,1700 [facility] Last Admin: 06/19/17 17:03 Dose: 0.5 mg Isosorbide Mononitrate (Imdur Er Tab*) 30 mg PO EVERY OTHER DAY [facility] Last Admin: 06/18/17 08:54 Dose: 30 mg Lisinopril (Prinivil Tab*) 5 mg PO BEDTIME [facility] Last Admin: 06/18/17 21:29 Dose: 5 mg Metoprolol Tartrate (Lopressor Tab*) 25 mg PO BID [facility] Last Admin: 06/19/17 10:04 Dose: 25 mg Prazosin HCl (Minipress Cap*) 5 mg PO BEDTIME [facility] Last Admin: 06/18/17 21:29 Dose: 5 mg Trazodone HCl (Desyrel Tab*) 150 mg PO BEDTIME [facility] Last Admin: 06/18/17 21:28 Dose: 150 mg - Discharge Plan Discharge Plan: Outpatient Follow Up Outpatient Program: [facility]
[2017-06-19] MEDS: Lisinopril TAB* 5 MG PO SCH (20:03)
[2017-06-19] MEDS: Citalopram TAB* 40 MG PO SCH (20:03)
[2017-06-19] MEDS: traZODone TAB* 100 MG PO SCH (20:04)
[2017-06-19] MEDS: Prazosin CAP* 5 MG PO SCH (20:04)
[2017-06-20] MEDS: ARIPiprazole TAB* 2 MG PO SCH (09:14)
[2017-06-20] MEDS: clonazePAM TAB(*) 0.5 MG PO SCH ×2 (09:16→17:31)
[2017-06-20] MEDS: Isosorbide Mononitrate ER TAB* 30 MG PO SCH (09:17)
[2017-06-20] MEDS: Metoprolol Tartrate TAB* 25 MG PO SCH ×2 (09:17→21:29)
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
[2017-06-20] MEDS: Atorvastatin* 40 MG TAB PO SCH (17:32)
[2017-06-20] MEDS: Citalopram TAB* 40 MG PO SCH (21:29)
[2017-06-20] MEDS: traZODone TAB* 100 MG PO SCH (21:29)
[2017-06-20] MEDS: Prazosin CAP* 5 MG PO SCH (21:29)
[2017-06-20] MEDS: Lisinopril TAB* 5 MG PO SCH (21:29)
[2017-06-21] MEDS: Metoprolol Tartrate TAB* 25 MG PO SCH (08:44)
[2017-06-21] MEDS: ARIPiprazole TAB* 2 MG PO SCH (08:44)
[2017-06-21] MEDS: clonazePAM TAB(*) 0.5 MG PO SCH (08:44)
[2017-06-21 10:43] VITALS: BP 171/89
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
== END 2017-06-21 17:09 | disposition home or self-care (01) | DRG 753 ==
LOC: ED 17:18 → BSU 06-17 16:09
PROVIDERS: ADMIT Psychiatry & Neurology Psychiatry; ATTEND Psychiatry & Neurology Psychiatry
DX: F39 Unspecified mood [affective] disorder (principal); R45.851 Suicidal ideations; I25.10 Atherosclerotic heart disease of native coronary artery without angina pectoris; I10 Essential (primary) hypertension; Z62.810 Personal history of physical and sexual abuse in childhood; F43.29 Adjustment disorder with other symptoms; F41.9 Anxiety disorder, unspecified; R41.83 Borderline intellectual functioning; Z87.891 Personal history of nicotine dependence; Z95.5 Presence of coronary angioplasty implant and graft; I25.2 Old myocardial infarction; Z82.49 Family history of ischemic heart disease and other diseases of the circulatory system; Z83.3 Family history of diabetes mellitus; Z56.0 Unemployment, unspecified
CPT/HCPCS: 36415; 80053; 80307; 80320; 80329; 81003; 84443; 85025; 93005; 99222; 99231; 99238; A9270-GY; G0480

== ENCOUNTER 2018-01-05 23:25 | Emergency (ER) | payer OTHER ==
[2018-01-06 01:14] VITALS: BP 167/109
--- NOTE | 2018-01-15 01:31 | ED ---
Loan Denny Julia, scribed for Ferdinand Zelaya MD on 01/06/18 at 0036 . Psychiatric Complaint - HPI Summary HPI Summary: This patient is a 57 year old M presenting to [facility] with a chief complaint of family problems and needs to talk to someone. He denies current SI and HI. He has been here before and states that he trusts the staff here. Patient has no other complaints. - History Of Current Complaint Chief Complaint: EDMentalHealth Time Seen by Provider: 01/06/18 00:33 Hx Obtained From: Patient Onset/Duration: Gradual Onset Character: Depressed Aggravating Factor(s): Recent Stress Associated Signs And Symptoms: Positive: Negative Related History: Positive For: Prior Psychiatric Issues Has Suicidal: Denies: Thoughts Has Homicidal: Denies: Thoughts - Allergies/Home Medications Allergies/Adverse Reactions: Allergies Allergy/AdvReac Type Severity Reaction Status Date / Time No Known Allergies Allergy Verified 01/05/18 23:39 PMH/Surg Hx/FS Hx/Imm Hx Endocrine/Hematology History: Denies: Hx Anticoagulant Therapy Cardiovascular History: Reports: Hx Angina, Hx Coronary Artery Disease, Hx Hypertension, Hx Myocardial Infarction, Other Cardiovascular Problems/Disorders - stents Denies: Hx Hypercholesterolemia, Hx Valvular Heart Disease Sensory History: Reports: Hx Contacts or Glasses Denies: Hx Hearing Aid Opthamlomology History: Reports: Hx Contacts or Glasses Neurological History: Reports: Hx Migraine, Other Neuro Impairments/Disorders - concussion Psychiatric History: Reports: Hx Depression, Hx Inpatient Treatment, Hx Community Mental Health Tx, Hx Suicide Attempt, Hx of Violent Episodes Against Others Denies: Hx Eating Disorder - Surgical History Surgery Procedure, Year, and Place: STENT PLACEMENT. COSMETIC SX EYES. HERNIA REPAIR X 3 Infectious Disease History: No Infectious Disease History: Reports: Hx of Known/Suspected MRSA - Negative swab this visit Denies: Hx Shingles, Hx Tuberculosis, History Other Infectious Disease, Traveled Outside the [place] in Last 30 Days - Family History Known Family History: Positive: Cardiac Disease, Hypertension, Diabetes, Other - "psych problems" - Social History Alcohol Use: Rare Alcohol Amount: Pt states he started drinking alcohol 1 week ago, 2-3 drinks/day Hx Substance Use: No Substance Use Type: Reports: None Hx Tobacco Use: Yes Smoking Status (MU): Former Smoker Length of Time of Smoking/Using Tobacco: has not used or smoked tobacco products in the last 30 days Review of Systems Constitutional: Negative Positive: Depressed All Other Systems Reviewed And Are Negative: Yes Physical Exam - Summary Physical Exam Summary: Appearance: Well-appearing, Well-nourished, lying in bed comfortably Skin: Warm, dry, no obvious rash Eyes: sclera anicteric, no conjunctival pallor ENT: mucous membranes moist, pharynx appears normal Neck: Supple, nontender Respiratory: Clear to auscultation, no signs of respiratory distress Cardiovascular: Normal S1, S2. No murmurs. Normal distal pulses in tibial and radial bilaterally. Abdomen: Soft, nontender, normal active bowel sounds present Musculoskeletal: Normal, Strength/ROM Intact Neurological: A&Ox3, awake and alert, mentation is normal, speech is fluent and appropriate Psychiatric: affect is normal, does not appear anxious or depressed Triage Information Reviewed: Yes Vital Signs On Initial Exam: Initial Vitals Temp Pulse Resp BP Pulse Ox 97.5 F 57 18 156/94 98 01/05/18 23:36 01/05/18 23:36 01/05/18 23:36 01/05/18 23:36 01/05/18 23:36 Vital Signs Reviewed: Yes Diagnostics - Vital Signs Vital Signs Temp Pulse Resp BP Pulse Ox 01/05/18 23:36 97.5 F 57 18 156/94 98 - Laboratory Lab Statement: Any lab studies that have been ordered have been reviewed, and results considered in the medical decision making process. Course/Dx - Differential Dx/Clinical Impression Provider Diagnosis: Anxiety Discharge - Sign-Out/Discharge Documenting (check all that apply): Discharge/Admit/Transfer - Discharge Plan Condition: Good Disposition: HOME Referrals: Julisa VAZQUEZ,Clyde Carroll [Primary Care Provider] - Additional Instructions: Per completion of a mental health evaluation, you are cleared for release and do not require inpatient psychiatric hospitalization at this time. Please go to nearest emergency room or call 911 if safety concerns arise or condition worsens. [facility]........[phone] Suicide Prevention and Crisis Services........................[phone] National Suicide Prevention Lifeline............................675-534-JCJE ( 2165) [facility].......................[phone] Alcoholics Anonymous...............................................[phone] [facility]..............[phone] [facility] [place] [employer]..............................................[phone] - Billing Disposition and Condition Condition: GOOD Disposition: Home The documentation as recorded by the Loan aguilar Julia accurately reflects the service I personally performed and the decisions made by , Ferdinand Zelaya MD.
== END 2018-01-06 01:13 | disposition home or self-care (01) ==
LOC: ED 23:25
DX: F41.9 Anxiety disorder, unspecified (principal); I25.119 Atherosclerotic heart disease of native coronary artery with unspecified angina pectoris; I25.2 Old myocardial infarction; I10 Essential (primary) hypertension; Z95.5 Presence of coronary angioplasty implant and graft; G43.909 Migraine, unspecified, not intractable, without status migrainosus; Z87.820 Personal history of traumatic brain injury; F32.9 Major depressive disorder, single episode, unspecified; Z91.5 Personal history of self-harm; Z86.14 Personal history of Methicillin resistant Staphylococcus aureus infection; Z87.891 Personal history of nicotine dependence; Z82.49 Family history of ischemic heart disease and other diseases of the circulatory system; Z83.3 Family history of diabetes mellitus
CPT/HCPCS: 99283

== ENCOUNTER 2018-04-23 11:12 | Emergency (ER) | payer OTHER ==
[2018-04-23 12:08] LABS: Urine Appearance Cloudy; Urine Blood 2+ (Negative); Urine Color Yellow; Urine Ketones Negative (Negative); Urine Protein 1+(30 mg/dL) (Negative); Urine Red Blood Cell 3+(>10/hpf) (Absent); Urine Specific Gravity 1.019 (1.010-1.030); Urine Urobilinogen Negative (Negative); Urine White Blood Cell Absent (Absent)
[2018-04-23 12:30] LABS: ABS Basophils 0.1 10^3/ul (0-0.2); ABS Eosinophils 0.5 10^3/ul (0-0.6); ABS Lymphocytes 2.2 10^3/ul (1.0-4.8); ABS Monocytes 0.6 10^3/ul (0-0.8); ABS Neutrophils 4.4 10^3/ul (1.5-7.7); ABS Nucleated RBC 0 10^3/ul; Hematocrit 39 % (42-52); Hemoglobin 13.5 g/dl (14.0-18.0); Lymphocyte % 28.2 % (25-47); Mean Corpuscular HGB Conc 34 g/dl (31-36); Mean Corpuscular Hemoglobin 31 pg (27-31); Mean Corpuscular Volume 90 fL (80-94); Mean Platelet Volume 8.1 um3 (7.4-10.4); Nucleated Red Blood Cells % 0.1; Platelet Count 172 10^3/ul (150-450); Red Blood Count 4.38 10^6/ul (4.00-5.40); Red Cell Distribution Width 14 % (10.5-15); White Blood Count 7.9 10^3/ul (3.5-10.8)
[2018-04-23 12:57] LABS: EGFR Non-African American 77.9 (>60)
[2018-04-23 13:51] VITALS: BP 150/72
--- NOTE | 2018-04-23 14:06 | ED ---
Psychiatric Complaint - HPI Summary HPI Summary: This patient is a 58 year old M presenting to [facility] with a chief complaint of depression since 0800. He endorses he has had recent family problems (he is in the middle of a divorce, which he states is a major stressor for him). He endorses the need for someone to talk to. Pt denies SI, HI, and hallucinations. He endorses psych Rx but cannot recall which ones. His most recent psych admission was 6-8 months ago at [facility]. Pt endorses med compliance. - History Of Current Complaint Chief Complaint: EDMentalHealth Time Seen by Provider: 04/23/18 11:40 Hx Obtained From: Patient Onset/Duration: Gradual Onset, Lasting Hours, Still Present Timing: Constant Severity Initially: Mild Severity Currently: Mild Character: Depressed Aggravating Factor(s): Recent Stress - divorce Alleviating Factor(s): Nothing Associated Signs And Symptoms: Positive: Negative. Negative: Hallucinating Related History: Positive For: Prior Psychiatric Issues Has Suicidal: Denies: Thoughts Has Homicidal: Denies: Thoughts - Allergies/Home Medications Allergies/Adverse Reactions: Allergies Allergy/AdvReac Type Severity Reaction Status Date / Time No Known Allergies Allergy Verified 04/23/18 12:06 PMH/Surg Hx/FS Hx/Imm Hx Endocrine/Hematology History: Denies: Hx Anticoagulant Therapy Cardiovascular History: Reports: Hx Angina, Hx Coronary Artery Disease, Hx Hypertension, Hx Myocardial Infarction, Other Cardiovascular Problems/Disorders - stents Denies: Hx Hypercholesterolemia, Hx Valvular Heart Disease Sensory History: Reports: Hx Contacts or Glasses Denies: Hx Hearing Aid Opthamlomology History: Reports: Hx Contacts or Glasses Neurological History: Reports: Hx Migraine, Other Neuro Impairments/Disorders - concussion Psychiatric History: Reports: Hx Depression, Hx Inpatient Treatment, Hx Community Mental Health Tx, Hx Suicide Attempt, Hx of Violent Episodes Against Others Denies: Hx Eating Disorder - Surgical History Surgery Procedure, Year, and Place: STENT PLACEMENT. COSMETIC SX EYES. HERNIA REPAIR X 3 - Immunization History Immunizations Up to Date: Yes Infectious Disease History: No Infectious Disease History: Reports: Hx of Known/Suspected MRSA - Negative swab this visit Denies: Hx Shingles, Hx Tuberculosis, History Other Infectious Disease, Traveled Outside the [place] in Last 30 Days - Family History Known Family History: Positive: Cardiac Disease, Hypertension, Diabetes, Other - "psych problems" - Social History Lives: Alone Alcohol Use: Rare Alcohol Amount: Pt states he started drinking alcohol 1 week ago, 2-3 drinks/day Hx Substance Use: No Substance Use Type: Reports: None Hx Tobacco Use: Yes Smoking Status (MU): Former Smoker Length of Time of Smoking/Using Tobacco: has not used or smoked tobacco products in the last 30 days Review of Systems Negative: Fever Positive: no symptoms reported Positive: Depressed. Negative: Other - SI, HI, Hallucinations All Other Systems Reviewed And Are Negative: Yes Physical Exam - Summary Physical Exam Summary: GENERAL: Patient is a well-developed and nourished M who is lying comfortable in the stretcher. Patient is not in any acute respiratory distress. HEAD AND FACE: Normocephalic EYES: PERRLA, EOMI x 2. EARS: Hearing grossly intact. MOUTH: Oropharynx within normal limits. NECK: Supple, trachea is midline, no adenopathy, no JVD, no carotid bruit. CHEST: Symmetric, no tenderness at palpation LUNGS: Clear to auscultation bilaterally. No wheezing or crackles. CVS: Regular rate and rhythm, S1 and S2 present, no murmurs or gallops appreciated. ABDOMEN: Soft, non-tender. Bowel sounds are normal. No abdominal abnormal pulsations. EXTREMITIES: Full ROM in all major joints, no edema, no cyanosis or clubbing. NEURO: Alert and oriented x 3. No acute neurological deficits. Speech is normal and follows commands. SKIN: Dry and warm PSYCH: no SI, HI, linear thought process and content. Normal affect. Triage Information Reviewed: Yes Vital Signs On Initial Exam: Initial Vitals Temp Pulse Resp BP Pulse Ox 98.3 F 63 16 162/91 96 04/23/18 11:14 04/23/18 11:14 04/23/18 11:14 04/23/18 11:14 04/23/18 11:14 Vital Signs Reviewed: Yes Diagnostics - Vital Signs Vital Signs Temp Pulse Resp BP Pulse Ox 04/23/18 13:49 98.7 F 67 12 150/72 97 04/23/18 12:39 98.2 F 65 16 147/75 99 04/23/18 11:14 98.3 F 63 16 162/91 96 - Laboratory Lab Results: Lab Results 04/23/18 04/23/18 04/23/18 Range/Units 11:46 11:46 12:07 WBC 7.9 (3.5-10.8) 10^3/ul RBC 4.38 (4.00-5.40) 10^6/ul Hgb 13.5 L (14.0-18.0) g/dl Hct 39 L (42-52) % MCV 90 (80-94) fL MCH 31 (27-31) pg MCHC 34 (31-36) g/dl RDW 14 (10.5-15) % Plt Count 172 (150-450) 10^3/ul MPV 8.1 (7.4-10.4) um3 Neut % (Auto) 56.6 (38-83) % Lymph % (Auto) 28.2 (25-47) % [place] % (Auto) 8.0 H (0-7) % Eos % (Auto) 6.0 (0-6) % Baso % (Auto) 1.2 (0-2) % Absolute Neuts (auto) 4.4 (1.5-7.7) 10^3/ul Absolute Lymphs (auto) 2.2 (1.0-4.8) 10^3/ul Absolute Monos (auto) 0.6 (0-0.8) 10^3/ul Absolute Eos (auto) 0.5 (0-0.6) 10^3/ul Absolute Basos (auto) 0.1 (0-0.2) 10^3/ul Absolute Nucleated RBC 0 10^3/ul Nucleated RBC % 0.1 Sodium (135-145) mmol/L Potassium (3.5-5.0) mmol/L Chloride (101-111) mmol/L Carbon Dioxide (22-32) mmol/L Anion Gap (2-11) mmol/L BUN (6-24) mg/dL Creatinine (0.67-1.17) mg/dL Est GFR ( Amer) (>60) Est GFR (Non-Af Amer) (>60) BUN/Creatinine Ratio (8-20) Glucose (70-100) mg/dL Calcium (8.6-10.3) mg/dL Total Bilirubin (0.2-1.0) mg/dL AST (13-39) U/L ALT (7-52) U/L Alkaline Phosphatase (34-104) U/L Total Protein (6.4-8.9) g/dL Albumin (3.2-5.2) g/dL Globulin (2-4) g/dL Albumin/Globulin Ratio (1-3) TSH (0.34-5.60) mcIU/mL Urine Color Yellow Urine Appearance Cloudy Urine pH 7.0 (5-9) Ur Specific [place] 1.019 (1.010-1.030) Urine Protein 1+(30 mg/dl) A (Negative) Urine Ketones Negative (Negative) Urine Blood 2+ A (Negative) Urine Nitrate Negative (Negative) Urine Bilirubin Negative (Negative) Urine Urobilinogen Negative (Negative) Ur Leukocyte Esterase Negative (Negative) Urine WBC (Auto) Absent (Absent) Urine RBC (Auto) 3+(>10/hpf) A (Absent) Urine Bacteria Absent (Absent) Hyaline Casts Present A (Absent) Urine Glucose Negative (Negative) Salicylates (<30) mg/dL Urine Opiates Screen None detected (None Detect) Acetaminophen mcg/mL Ur Barbiturates Screen None detected (None Detect) Ur Phencyclidine Scrn None detected (None Detect) Ur Amphetamines Screen None detected (None Detect) U Benzodiazepines Scrn None detected (None Detect) Urine Cocaine Screen None detected (None Detect) U Cannabinoids Screen None detected (None Detect) Serum Alcohol (<10) mg/dL 04/23/18 Range/Units 12:07 WBC (3.5-10.8) 10^3/ul RBC (4.00-5.40) 10^6/ul Hgb (14.0-18.0) g/dl Hct (42-52) % MCV (80-94) fL MCH (27-31) pg MCHC (31-36) g/dl RDW (10.5-15) % Plt Count (150-450) 10^3/ul MPV (7.4-10.4) um3 Neut % (Auto) (38-83) % Lymph % (Auto) (25-47) % Hitchcock % (Auto) (0-7) % Eos % (Auto) (0-6) % Baso % (Auto) (0-2) % Absolute Neuts (auto) (1.5-7.7) 10^3/ul Absolute Lymphs (auto) (1.0-4.8) 10^3/ul Absolute Monos (auto) (0-0.8) 10^3/ul Absolute Eos (auto) (0-0.6) 10^3/ul Absolute Basos (auto) (0-0.2) 10^3/ul Absolute Nucleated RBC 10^3/ul Nucleated RBC % Sodium 137 (135-145) mmol/L Potassium 3.8 (3.5-5.0) mmol/L Chloride 106 (101-111) mmol/L Carbon Dioxide 25 (22-32) mmol/L Anion Gap 6 (2-11) mmol/L BUN 23 (6-24) mg/dL Creatinine 0.99 (0.67-1.17) mg/dL Est GFR ( Amer) 94.3 (>60) Est GFR (Non-Af Amer) 77.9 (>60) BUN/Creatinine Ratio 23.2 H (8-20) Glucose 95 (70-100) mg/dL Calcium 8.9 (8.6-10.3) mg/dL Total Bilirubin 0.40 (0.2-1.0) mg/dL AST 27 (13-39) U/L ALT 16 (7-52) U/L Alkaline Phosphatase 86 (34-104) U/L Total Protein 6.7 (6.4-8.9) g/dL Albumin 4.1 (3.2-5.2) g/dL Globulin 2.6 (2-4) g/dL Albumin/Globulin Ratio 1.6 (1-3) TSH 2.13 (0.34-5.60) mcIU/mL Urine Color Urine Appearance Urine pH (5-9) Ur Specific [place] (1.010-1.030) Urine Protein (Negative) Urine Ketones (Negative) Urine Blood (Negative) Urine Nitrate (Negative) Urine Bilirubin (Negative) Urine Urobilinogen (Negative) Ur Leukocyte Esterase (Negative) Urine WBC (Auto) (Absent) Urine RBC (Auto) (Absent) Urine Bacteria (Absent) Hyaline Casts (Absent) Urine Glucose (Negative) Salicylates < 2.50 (<30) mg/dL Urine Opiates Screen (None Detect) Acetaminophen < 15 mcg/mL Ur Barbiturates Screen (None Detect) Ur Phencyclidine Scrn (None Detect) Ur Amphetamines Screen (None Detect) U Benzodiazepines Scrn (None Detect) Urine Cocaine Screen (None Detect) U Cannabinoids Screen (None Detect) Serum Alcohol < 10 (<10) mg/dL Result Diagrams: 04/23/18 12:07 04/23/18 12:07 Lab Statement: Any lab studies that have been ordered have been reviewed, and results considered in the medical decision making process. Course/Dx - Differential Dx/Clinical Impression Provider Diagnosis: Psychiatric problem - Physician Notifications Discussed Care Of Patient With: Gualberto Haddad Time Discussed With Above Provider: 13:50 Instructed by Provider To: Other - Will discharge and recommends follow up with [facility]. Discharge - Sign-Out/Discharge Documenting (check all that apply): Patient Departure - discharge - Discharge Plan Condition: Stable Disposition: HOME Patient Education Materials: Stress (ED) Referrals: [facility] [Outside] Additional Instructions: Return to the emergency department for any new or worsening symptoms. Follow up with [facility] in 1-3 days. - Billing Disposition and Condition Condition: STABLE Disposition: Home - Attestation Statements Document Initiated by Scribe: Yes Documenting Scribe: Van Fitzgerald Provider For Whom Carlos is Documenting (Include Credential): Dr. Cristin Hopper MD Scribe Attestation: Van Denny scribed for Dr. Cristin Hopper MD on 04/26/18 at 0734. Scribe Documentation Reviewed: Yes Provider Attestation: The documentation as recorded by the Van aguilar accurately reflects the service I personally performed and the decisions made by me, Dr. Cristin Hopper MD
== END 2018-04-23 13:53 | disposition home or self-care (01) ==
LOC: ED 11:12
DX: F99 Mental disorder, not otherwise specified (principal); F32.9 Major depressive disorder, single episode, unspecified; Z87.891 Personal history of nicotine dependence
CPT/HCPCS: 36415; 80053; 80307; 80320; 80329; 81003; 81015; 84443; 85025; 99284; G0480

== ENCOUNTER → 2018-06-14 15:28 | Emergency (ER) | payer OTHER ==
[~2018-06-14 15:28] MED LIST: Metoprolol Tartrate TAB* 50 mg PO ONE
--- NOTE | 2018-06-14 16:30 | ED ---
Psychiatric Complaint - HPI Summary HPI Summary: This patient is a 58 year old male presenting to [facility] with a chief complaint of depression and voluntary MHE. Patient states that he is having some family problems and will most likely be getting a divorce soon. Patient is additionally upset that all of the friends that he believed would be there for him have deserted him. Patient states that he feels that what his former friends say about him being a burden must be true, although he vehemently denies any SI or HI. Patient states that he just needs to talk to someone. He has a hx of depression and anxiety. Patient denies any drugs or alcohol. - History Of Current Complaint Chief Complaint: EDMentalHealth Time Seen by Provider: 06/14/18 15:56 Hx Obtained From: Patient Onset/Duration: Still Present Timing: Constant Severity Currently: Moderate Character: Depressed Aggravating Factor(s): Nothing Alleviating Factor(s): Nothing Associated Signs And Symptoms: Positive: Social Withdrawal Has Suicidal: Denies: Thoughts Has Homicidal: Denies: Thoughts - Allergies/Home Medications Allergies/Adverse Reactions: Allergies Allergy/AdvReac Type Severity Reaction Status Date / Time No Known Allergies Allergy Verified 04/23/18 12:06 PMH/Surg Hx/FS Hx/Imm Hx Previously Healthy: No Endocrine/Hematology History: Denies: Hx Anticoagulant Therapy Cardiovascular History: Reports: Hx Angina, Hx Coronary Artery Disease, Hx Hypertension, Hx Myocardial Infarction, Other Cardiovascular Problems/Disorders - stents Denies: Hx Hypercholesterolemia, Hx Valvular Heart Disease Sensory History: Reports: Hx Contacts or Glasses Denies: Hx Hearing Aid Opthamlomology History: Reports: Hx Contacts or Glasses Neurological History: Reports: Hx Migraine, Other Neuro Impairments/Disorders - concussion Psychiatric History: Reports: Hx Depression, Hx Inpatient Treatment, Hx Community Mental Health Tx, Hx Suicide Attempt, Hx of Violent Episodes Against Others Denies: Hx Eating Disorder - Surgical History Surgery Procedure, Year, and Place: STENT PLACEMENT. COSMETIC SX EYES. HERNIA REPAIR X 3 Infectious Disease History: No Infectious Disease History: Reports: Hx of Known/Suspected MRSA - Negative swab this visit Denies: Hx Shingles, Hx Tuberculosis, History Other Infectious Disease, Traveled Outside the [place] in Last 30 Days - Family History Known Family History: Positive: Cardiac Disease, Hypertension, Diabetes, Other - "psych problems" - Social History Lives: With Family Alcohol Use: None Hx Substance Use: No Substance Use Type: Reports: None Hx Tobacco Use: Yes Smoking Status (MU): Former Smoker Length of Time of Smoking/Using Tobacco: has not used or smoked tobacco products in the last 30 days Review of Systems Negative: Fever Positive: Depressed All Other Systems Reviewed And Are Negative: Yes Physical Exam - Summary Physical Exam Summary: VITAL SIGNS: Reviewed. GENERAL: Patient is a well-developed and nourished male who is lying comfortable in the stretcher. Patient is not in any acute respiratory distress. HEAD AND FACE: No signs of trauma. No ecchymosis, hematomas or skull depressions. No sinus tenderness. EYES: PERRLA, EOMI x 2, No injected conjunctiva, no nystagmus. EARS: Hearing grossly intact. Ear canals and tympanic membranes are within normal limits. MOUTH: Oropharynx within normal limits. NECK: Supple, trachea is midline, no adenopathy, no JVD, no carotid bruit, no c- spine tenderness, neck with full ROM. CHEST: Symmetric, no tenderness at palpation LUNGS: Clear to auscultation bilaterally. No wheezing or crackles. CVS: Regular rate and rhythm, S1 and S2 present, no murmurs or gallops appreciated. ABDOMEN: Soft, non-tender. No signs of distention. No rebound no guarding, and no masses palpated. Bowel sounds are normal. EXTREMITIES: FROM in all major joints, no edema, no cyanosis or clubbing. NEURO: Alert and oriented x 3. No acute neurological deficits. Speech is normal and follows commands. SKIN: Dry and warm Triage Information Reviewed: Yes Vital Signs On Initial Exam: Initial Vitals Temp Pulse Resp BP Pulse Ox 97.1 F 79 16 176/112 100 06/14/18 15:30 06/14/18 15:30 06/14/18 15:30 06/14/18 15:30 06/14/18 15:30 Vital Signs Reviewed: Yes Diagnostics - Vital Signs Vital Signs Temp Pulse Resp BP Pulse Ox 06/14/18 15:30 97.1 F 79 16 176/112 100 - Laboratory Lab Statement: Any lab studies that have been ordered have been reviewed, and results considered in the medical decision making process. Course/Dx - Course Assessment/Plan: He is medically cleared. He is awaiting for a MHE. Patient is hemodynamically stable and A+O x 3. Dr. Painter assessed the patient and they recommended for the patient to be discharged home with follow-up with the [facility]. Diagnosis is anxiety. - Differential Dx/Clinical Impression Differential Diagnosis/HQI/PQRI: Positive: Anxiety, Depression Provider Diagnosis: Anxiety Discharge - Sign-Out/Discharge Documenting (check all that apply): Patient Departure - Discharge Plan Condition: Stable Disposition: HOME Patient Education Materials: Anxiety (ED) Referrals: Clyde Weiss [Primary Care Provider] - Additional Instructions: Return to the ED for any new or worsening symptoms. - Billing Disposition and Condition Condition: STABLE Disposition: Home - Attestation Statements Document Initiated by Carlos: Yes Documenting Scribe: Mick Aaron Provider For Whom Carols is Documenting (Include Credential): Neel Fox MD Scribe Attestation: Mick Denny scribed for Neel Fox MD on 06/14/18 at 1856. Scribe Documentation Reviewed: Yes Provider Attestation: The documentation as recorded by the Mick aguilar accurately reflects the service I personally performed and the decisions made by , Neel Fox MD
[2018-06-14 16:52] LABS: Urine Appearance Cloudy; Urine Blood 3+ (Negative); Urine Ketones Negative (Negative); Urine Protein 2+(100 mg/dL) (Negative); Urine Red Blood Cell 3+(>10/hpf) (Absent); Urine Specific Gravity 1.016 (1.010-1.030); Urine Urobilinogen Negative (Negative); Urine White Blood Cell Absent (Absent)
[2018-06-14 16:53] LABS: Urine Color Amber
[2018-06-14 19:31] VITALS: BP 171/110
== END | disposition home or self-care (01) ==
LOC: ED 15:28
DX: F41.9 Anxiety disorder, unspecified (principal); I25.10 Atherosclerotic heart disease of native coronary artery without angina pectoris; F32.9 Major depressive disorder, single episode, unspecified; I10 Essential (primary) hypertension; Z87.891 Personal history of nicotine dependence
CPT/HCPCS: 36415; 80307; 81003; 81015; 87086; 99283; A9270-GY